=== PATIENT | female | born 1970 | race Caucasian/White ===

== ENCOUNTER 2024-01-16 13:40 | Emergency (ER) | payer OTHER, SELFPAY ==
[2024-01-16 13:45] VITALS: BP 158/79
--- NOTE | 2024-01-16 14:59 | ED.GENMED ---
History of Present Illness
General
Chief Complaint: DVT/Possible Blood Clot
Source: patient
Exam Limitations: none
Time Seen by Provider: 01/16/24 14:55
Nursing documentation reviewed up to this point in time: agreed with
Travel History
Have you had any contact with someone who has COVID-19?: No
Do you have any symptoms of coronavirus? Fever > 100 degrees, chills, cough, shortness of breath, sore throat, loss of taste or smell, muscle aches, or headache?: No
History of Present Illness
History of Present Illness:
This is a 53-year-old female with past medical history of antiphospholipid antibody syndrome, fibromyalgia presenting to the emergency department today with right-sided calf pain. She states that the pain has been going on for a while but it got
worse today randomly. She states that is worse with walking. She denies any lower extremity swelling, redness. She denies any history of vascular disease. She denies any trauma to the leg. Denies any recent falls. She does not take any
anticoagulation for her antiphospholipid syndrome because she is never had a clot before. She states that this pain has been going on for around the past 6 months but today it is a lot worse. She states that she also has diffuse spasms throughout
her body, and is been being worked up by this issue by a coil winder hand, and has an appointment in 6 months with neurologist. She is concerned about the possibility of a clot in her leg due to her history of phospholipid syndrome. She denies other
symptoms, denies difficulty with ambulation, denies shortness of breath, chest pain.
Past History
Past History
ED Past Medical History: Asthma, HTN, Hypercholesterolemia, Hypothyroidism and Other (Herniated disc Chronic Sinusitis, Ovarian cyst, Sigmoid colon colapse, fibromyalgia, anxiety)
ED Past Surgical History: Cholecystectomy, Orthopedic and Other (Fibromyalgia, peripheral neuropathy, gastric bypass)
Social History
Tobacco: Smoker (vaping)
Alcohol: None
Drug: None
Personal:
Living: with family
Family History
Family History: Other (n/c)
Review of Systems
Review of Systems
All Other Systems: ROS reviewed and negative except as documented in HPI and ROS
Phy Exam
Physical Exam
Physical Exam:
Vitals: Patient is hypertensive
General: Patient is well appearing and in no acute distress
Skin: Skin warm and dry, no rashes or lesions
Cards: Heart rate is regular rate and rhythm, no murmur
Pulm: Normal respiratory effort
Peripheral vascular: There is no lower extremity edema bilaterally. 2+ DP/PT pulses bilaterally.
Musculoskeletal: Patient has full range of motion bilateral lower extremities. Patient has no tenderness to palpation of the right calf, no active spasm felt. Negative jennifer's sign bilaterally.
Neuro: AAOx3.
Course
Orders/Labs/Results
Orders:
Orders
01/16/24 13:53
US Periph Venous LOWER Ext RT Urgent
Comment:
Reason For Exam: calf pain
Vital Signs
Initial and Last Documented VS:
Initial Vital Signs
Temp Pulse Resp BP Pulse Ox
97.9 F 87 16 158/79 98
01/16/24 13:45 01/16/24 13:45 01/16/24 13:45 01/16/24 13:45 01/16/24 13:45
Last Documented Vital Signs
Temp Pulse Resp BP Pulse Ox
97.9 F 87 16 158/79 98
01/16/24 13:45 01/16/24 13:45 01/16/24 13:45 01/16/24 13:45 01/16/24 13:45
MDM/Problems Addressed
Differential Diagnosis Includes:
ddx include fasciculations,musculoskeletal sprain/strain, hypokalemia, DVT, MS, fibromyalgia
MDM/Problems Addressed:
calf pain
Chronic conditions affecting care: HTN, Asthma, Neurological disorder, Psychiatric illness and Other (fibromyalgia)
Acute Exacerbation and/or Progression of Chronic Illness: HTN
*Pulse Oximetry
Patient hypoxic: no
*Critical Care Note
Total Time (30-74mins, 75-104mins- exclusive of procedures): Not Applicable
Data Reviewed
Review of Other/Old Records Reveals: Labs (Reviewed most recent labs, electrolytes unremarkable) and Records (Reviewed ER physician documentation from 10/13/2023)
Source: patient and family
Prescriptions/Medications Considered But Not Given:
Considered muscle relaxant however patient states that this has not helped her symptoms in the past
Further Testing Considered But Not Given:
n/a
Patient Management
Escalation/DeEscalation of care consider admission/obs:
53 y/o female with past medical history of antiphospholipid antibody syndrome not on anticoagulation, fibromyalgia, presenting emergency department today with right calf pain. She states that this has been going on for many months but it is
particularly worse today. On exam, she has no tenderness palpation in the right calf, no active spasm, no lower extremity swelling or erythema. She has good pulses. Her ultrasound study was negative for DVT. She also admits to full body muscle
spasming. She is currently being worked up by rheumatology for this issue and will see neurology. Her primary provider is concerned about a neuromuscular disease. At this point, she is stable for discharge, she states that she has a neurology
follow-up in the summer however wishes to see them sooner. I provided her her with a follow-up with neurology from [place].
ED Attending Note
-
Portions of this chart may have been created with voice recognition software.� Occasional wrong word or��sound alike� substitutions may have occurred due to the inherent limitations of voice recognition software.
Discharge Plan
Departure
Patient Disposition: Home (Routine Discharge)
Date of Disposition: 01/16/24
Time of Disposition: 15:37
Patient with high blood pressure during this ER visit?: Yes
Condition: Good
Discharge Problem:
Calf pain
Instructions: Muscle Spasm ED, BLOOD PRESSURE
Prescriptions:
No Action
omeprazole [Prilosec] 40 MG capsule,delayed release(DR/EC)
20 mg PO DAILY
levothyroxine 150 MCG tablet
200 mcg PO DAILY
albuterol sulfate 1 PUFF HFA aerosol inhaler
2 puff inhalation Q4HPRN PRN (Reason: sob)
multivitamin [Multi-Day] 1 EACH tablet
1 ea PO DAILY
cholecalciferol (vitamin D3) 5,000 UNIT tablet
5,000 unit PO DAILY
cyanocobalamin (vitamin B-12) 1,000 MCG tablet
1,000 mcg PO WEEKLY
losartan-hydrochlorothiazide 1 EACH tablet
1 ea PO DAILY
Calcium Citrate
600 mg PO DAILY
cannabidiol [Epidiolex] 1 UNIT solution
1 unit PO DAILY PRN (Reason: chronic pain)
prednisone 10 mg Tablet
See Rx Instructions .ROUTE .COMPLEX Qty: 30 0RF
Rx Instructions:
Take By Mouth:
40 mg daily x3 days, 30 mg daily x3 days,
20 mg daily x3 days, 10 mg daily x3 days.
Referrals:
Jeromy Mcbride MD [Active] - Call in 1-3 days for appt
Activity Restrictions/Additional Instructions:
Your ultrasound did not show any evidence of blood clot.
We have given you referral for neurology, Dr. Mcbride, please call in 1-3 days for an appointment.
Please return emergency department with any concerns. Please follow-up with your primary care provider.
Interventions
Interventions:
*General Assessment Last Done: 01/16/24 13:45
*ED COVID-19 Vaccine History Last Done: 01/16/24 13:45
*Nursing Disposition Last Done: 01/16/24 15:57
ED- Cardiac Assessment Last Done: 01/16/24 15:46
ED- Pulmonary Assessment Last Done: 01/16/24 15:46
ED-Peripheral Vascular Assessment Last Done: 01/16/24 15:46
ED-Skin Assessment Last Done: 01/16/24 15:46
Discharge Date and Time
Discharge Date/Time: 01/16/24 15:58
== END 2024-01-16 15:58 | disposition home or self-care (01) ==
LOC: EMR 13:40
PROVIDERS: EMERGENCY PHYSICIAN Emergency Medicine; FAMILY PHYSICIAN Family Medicine
DX: M79.661 Pain in right lower leg (principal); D68.61 Antiphospholipid syndrome; M79.7 Fibromyalgia; J45.909 Unspecified asthma, uncomplicated; I10 Essential (primary) hypertension; E78.00 Pure hypercholesterolemia, unspecified; E03.9 Hypothyroidism, unspecified; F17.290 Nicotine dependence, other tobacco product, uncomplicated; Z90.49 Acquired absence of other specified parts of digestive tract; Z98.84 Bariatric surgery status
CPT/HCPCS: 99284; 93971

== ENCOUNTER → 2024-01-30 08:03 | Outpatient (REF) | payer OTHER, SELFPAY | LOC: DHCBC/DCA 08:03 | PROVIDERS: ATTENDING PHYSICIAN Internal Medicine Cardiovascular Disease; FAMILY PHYSICIAN Family Medicine | DX: R07.2 Precordial pain (principal) | CPT/HCPCS: 78452; 93017; A9500; J2785 ==

== ENCOUNTER → 2024-02-11 16:03 | Outpatient (REF) | payer OTHER, SELFPAY | LOC: PAVMRI 16:03 | PROVIDERS: ATTENDING PHYSICIAN Neurological Surgery; FAMILY PHYSICIAN Family Medicine | DX: M47.816 Spondylosis without myelopathy or radiculopathy, lumbar region (principal) | CPT/HCPCS: 72146; 72148 ==

== ENCOUNTER → 2024-03-17 08:14 | Outpatient (REF) | payer OTHER, SELFPAY | LOC: HWRAD 08:14 | PROVIDERS: ATTENDING PHYSICIAN Internal Medicine Critical Care Medicine; FAMILY PHYSICIAN Family Medicine | DX: Z87.891 Personal history of nicotine dependence (principal) | CPT/HCPCS: 71271 ==

== ENCOUNTER → 2024-03-17 | Outpatient (REF) | payer OTHER, SELFPAY | LOC: DHSLP | PROVIDERS: ATTENDING PHYSICIAN Internal Medicine Critical Care Medicine; FAMILY PHYSICIAN Family Medicine | DX: G47.30 Sleep apnea, unspecified (principal); R06.83 Snoring | CPT/HCPCS: 95810 ==

== ENCOUNTER → 2024-04-15 15:15 | Outpatient (REF) | payer OTHER, SELFPAY | LOC: PAVMRI 15:15 | PROVIDERS: ATTENDING PHYSICIAN Orthopaedic Surgery; FAMILY PHYSICIAN Family Medicine | DX: M25.552 Pain in left hip (principal) | CPT/HCPCS: 73721 ==

== ENCOUNTER → 2024-04-22 09:15 | Outpatient (REF) | payer OTHER, SELFPAY | LOC: DHSLP 09:15 | PROVIDERS: ATTENDING PHYSICIAN Internal Medicine Critical Care Medicine; FAMILY PHYSICIAN Family Medicine | DX: G47.33 Obstructive sleep apnea (adult) (pediatric) (principal) | CPT/HCPCS: 95810 ==

== ENCOUNTER → 2024-04-23 | Outpatient (REF) | payer OTHER, SELFPAY | LOC: DHSLP | PROVIDERS: ATTENDING PHYSICIAN Internal Medicine Critical Care Medicine; FAMILY PHYSICIAN Family Medicine | DX: G47.11 Idiopathic hypersomnia with long sleep time (principal); G47.30 Sleep apnea, unspecified | CPT/HCPCS: 95805 ==

== ENCOUNTER → 2024-05-03 07:31 | Outpatient (REF) | payer OTHER, SELFPAY | LOC: EMG 07:31 | PROVIDERS: ATTENDING PHYSICIAN Orthopaedic Surgery; FAMILY PHYSICIAN Obstetrics & Gynecology | DX: R20.0 Anesthesia of skin (principal) | CPT/HCPCS: 95886; 95909 ==

== ENCOUNTER → 2024-05-25 17:08 | Outpatient (REF) | payer OTHER, SELFPAY | LOC: PAVMRI 17:08 | PROVIDERS: ATTENDING PHYSICIAN Orthopaedic Surgery; FAMILY PHYSICIAN Family Medicine | DX: M54.12 Radiculopathy, cervical region (principal); M79.642 Pain in left hand | CPT/HCPCS: 72141; 73218 ==

== ENCOUNTER → 2024-05-29 07:15 | Outpatient (REF) | payer OTHER, SELFPAY | LOC: MRI 3T 07:15 | PROVIDERS: ATTENDING PHYSICIAN Orthopaedic Surgery; FAMILY PHYSICIAN Family Medicine | DX: M25.561 Pain in right knee (principal) | CPT/HCPCS: 73721 ==

== ENCOUNTER → 2024-06-07 09:06 | Outpatient (REF) | payer OTHER, SELFPAY | LOC: HWWDC 09:06 | PROVIDERS: ATTENDING PHYSICIAN Family Medicine | DX: Z12.31 Encounter for screening mammogram for malignant neoplasm of breast (principal) | CPT/HCPCS: 77063; 77067 ==

== ENCOUNTER → 2024-07-19 14:56 | Outpatient (REF) | payer OTHER, SELFPAY | LOC: HWRAD 14:56 | PROVIDERS: ATTENDING PHYSICIAN Neurological Surgery; FAMILY PHYSICIAN Family Medicine | DX: M47.812 Spondylosis without myelopathy or radiculopathy, cervical region (principal); M48.02 Spinal stenosis, cervical region; M54.2 Cervicalgia; M54.12 Radiculopathy, cervical region; M47.816 Spondylosis without myelopathy or radiculopathy, lumbar region; M43.16 Spondylolisthesis, lumbar region; M48.062 Spinal stenosis, lumbar region with neurogenic claudication; M54.42 Lumbago with sciatica, left side; M54.41 Lumbago with sciatica, right side; M54.16 Radiculopathy, lumbar region; G89.4 Chronic pain syndrome; M25.562 Pain in left knee; G89.29 Other chronic pain | CPT/HCPCS: 72050; 72110 ==

== ENCOUNTER → 2024-08-09 10:45 | Outpatient (REF) | payer OTHER, SELFPAY | LOC: HWRAD 10:45 | PROVIDERS: ATTENDING PHYSICIAN Internal Medicine Rheumatology; FAMILY PHYSICIAN Family Medicine | DX: M81.0 Age-related osteoporosis without current pathological fracture (principal) | CPT/HCPCS: 77080 ==

== ENCOUNTER → 2024-08-19 09:59 | Outpatient (REF) | payer OTHER, SELFPAY | LOC: RAD 09:59 | PROVIDERS: ATTENDING PHYSICIAN Internal Medicine; FAMILY PHYSICIAN Family Medicine; REFERRING PHYSICIAN Surgery Vascular Surgery | DX: M79.604 Pain in right leg (principal); M79.605 Pain in left leg; F17.200 Nicotine dependence, unspecified, uncomplicated | CPT/HCPCS: 93922; 93925; 93978 ==

== ENCOUNTER → 2024-11-17 15:51 | Outpatient (REF) | payer OTHER, SELFPAY | LOC: DHSLP 15:51 | PROVIDERS: ATTENDING PHYSICIAN Internal Medicine Critical Care Medicine; FAMILY PHYSICIAN Family Medicine | DX: G47.33 Obstructive sleep apnea (adult) (pediatric) (principal); G47.52 REM sleep behavior disorder | CPT/HCPCS: 95810 ==

== ENCOUNTER 2024-11-21 12:39 | Emergency (ER) | payer OTHER, SELFPAY ==
[2024-11-21 12:41] VITALS: BP 179/90
[2024-11-21 13:28] VITALS: BP 145/88
[2024-11-21 13:35] VITALS: BMI 42.8
[2024-11-21 14:00] VITALS: BP 131/65
[2024-11-21] MEDS: NSS 1000 IV (14:50)
--- NOTE | 2024-11-21 15:03 | ED.GENMED ---
History of Present Illness
General
Chief Complaint: Heart Rate Problem
Source: patient
Exam Limitations: none
Time Seen by Provider: 11/21/24 13:12
Nursing documentation reviewed up to this point in time: agreed with
History of Present Illness
History of Present Illness:
54-year-old female with past medical history of asthma, anemia, IBS presenting the emergency department today for concerns of palpitations and starting earlier this morning roughly 10 hours prior to arrival to the emergency department also felt some
shortness of breath. Has been on prednisone for bronchitis over the past few weeks. Denies any specific chest pain nausea vomiting any recent fevers.
Past History
Past History
ED Past Medical History: Asthma, HTN, Hypercholesterolemia, Hypothyroidism and Other (Herniated disc Chronic Sinusitis, Ovarian cyst, Sigmoid colon colapse, fibromyalgia, anxiety)
ED Past Surgical History: Cholecystectomy, Orthopedic and Other (Fibromyalgia, peripheral neuropathy, gastric bypass)
Social History
Tobacco: Smoker (vaping)
Alcohol: None
Drug: None
Personal:
Living: with family
Family History
Family History: Other (n/c)
Review of Systems
Review of Systems
Allergies reviewed?: Yes
All Other Systems: ROS reviewed and negative except as documented in HPI and ROS
Phy Exam
Physical Exam
Physical Exam:
GENERAL: Alert , in no apparent distress
EYE: pupils equal and reactive
NECK: Supple, no significant adenopathy.
ENT: o/p clr, mmm.
CARDIAC: Regular rate and rhythm .
LUNGS: Clear breath sounds bilaterally, no acute respiratory distress, no wheezes/rales/rhonchi
ABDOMEN: Soft, without focal tenderness, no r/g, no cvat
NEUROLOGICAL: Alert and oriented, no focal neuro deficits
SKIN: Warm and dry, skin intact.
MUSCULOSKELETAL: No edema, well perfused.
PSYCH: Normal and appropriate interaction.
Course
Orders/Labs/Results
Orders:
Orders
11/21/24 12:40
ECG [Electrocardiogram (*1)] Urgent
Reason for Study: Palpitations
EKG- Treatment ONCE
11/21/24 14:24
0.9% Sodium Chloride 1000 ml [Nss] 1,000 ml IV BOLUS
11/21/24 14:48
Complete Blood Count/With Diff Urgent
Comprehensive Metabolic Panel Urgent
TSH Reflex To Free T4 Urgent
Urinalysis Reflex To Culture Urgent
Date Specimen was Collected: 11/21/24
Time Specimen was Collected: 14:41
11/21/24 17:54
Flecainide [Tambocor] 50 mg PO NOW STA
Abnormal Lab Results
11/21/24
14:48
WBC 10.9 H 10^3/uL
(4.8-10.8)
Abs Immat Gran (auto) 0.1 H 10^3/uL
(0-0.05)
Absolute Neuts (auto) 8.9 H 10^3/uL
(1.4-6.5)
Immature Gran % 1.0 H %
(0-0.5)
Neutrophils % 81.5 H %
(42.2-75.2)
Lymphocytes % 11.8 L %
(20.5-51.1)
Sodium 134 L mmol/L
(135-145)
Chloride 97 L mmol/L
(98-107)
Carbon Dioxide 33 H mmol/L
(22-30)
BUN 24 H mg/dl
(7-17)
11/21/24 14:48
11/21/24 14:48
Vital Signs
Initial and Last Documented VS:
Initial Vital Signs
Temp Pulse Resp BP Pulse Ox
98.6 F 67 18 179/90 99
11/21/24 12:41 11/21/24 12:41 11/21/24 12:41 11/21/24 12:41 11/21/24 12:41
Last Documented Vital Signs
Temp Pulse Resp BP Pulse Ox
98.6 F 65 15 134/74 97
11/21/24 12:41 11/21/24 16:15 11/21/24 16:15 11/21/24 16:00 11/21/24 16:15
MDM/Problems Addressed
MDM/Problems Addressed:
54-year-old female presenting to the emergency department today for concerns of palpitations starting prior to arrival. Some mild shortness of breath associated. On arrival heart rate is in normal rate EKG with no arrhythmia initial blood pressure
elevated but without specific treatment. Normal heart sounds and lung sounds. Here she did have heart rate fluctuation between 50s to 120s. The 120 rhythm is appear to be supraventricular. The case was discussed with cardiology they reviewed the
case and spoke with the patient directly about this. They recommend starting flecainide but otherwise stable for outpatient follow-up. Remainder of the workup without emergent findings stable for outpatient management return precautions given.
*Critical Care Note
Total Time (30-74mins, 75-104mins- exclusive of procedures): Not Applicable
ED Attending Note
-
Portions of this chart may have been created with voice recognition software.� Occasional wrong word or��sound alike� substitutions may have occurred due to the inherent limitations of voice recognition software.
Discharge Plan
Departure
Patient Disposition: Home (Routine Discharge)
Date of Disposition: 11/21/24
Time of Disposition: 18:06
Patient with high blood pressure during this ER visit?: No
Condition: Good
Covid-19: Not Applicable
Discharge Problem:
Heart palpitations
Instructions: Palpitations (DC)
Prescriptions:
No Action
omeprazole [Prilosec] 40 MG capsule,delayed release(DR/EC)
20 mg PO DAILY
levothyroxine 150 MCG tablet
200 mcg PO DAILY
albuterol sulfate 1 PUFF HFA aerosol inhaler
2 puff inhalation Q4HPRN PRN (Reason: sob)
multivitamin [Multi-Day] 1 EACH tablet
1 ea PO DAILY
cholecalciferol (vitamin D3) 5,000 UNIT tablet
5,000 unit PO DAILY
cyanocobalamin (vitamin B-12) 1,000 MCG tablet
1,000 mcg PO WEEKLY
losartan-hydrochlorothiazide 1 EACH tablet
1 ea PO DAILY
Calcium Citrate
600 mg PO DAILY
cannabidiol [Epidiolex] 1 UNIT solution
1 unit PO DAILY PRN (Reason: chronic pain)
prednisone 10 mg Tablet
See Rx Instructions .ROUTE .COMPLEX Qty: 30 0RF
Rx Instructions:
Take By Mouth:
40 mg daily x3 days, 30 mg daily x3 days,
20 mg daily x3 days, 10 mg daily x3 days.
Referrals:
Deejay Lopez MD [Family Provider] -
Activity Restrictions/Additional Instructions:
You came to the emergency department today with concerns of palpitations. Here your heart rate was fluctuating and you were having some evidence of supraventricular beats here and there. This was discussed with cardiology that recommends
flecainide. Please take as prescribed dosing and follow-up closely with cardiology. Return to the emergency department any worsening, new or concerning symptoms.
Interventions
Interventions:
*Risk Screen - Suicide Last Done: 11/21/24 12:41
*General Assessment Last Done: 11/21/24 12:41
*Neglect/Abuse Screening Last Done: 11/21/24 12:41
*ED COVID-19 Vaccine History Last Done: 11/21/24 12:41
ED- Cardiac Assessment Last Done: 11/21/24 17:12
ED- Pulmonary Assessment Last Done: 11/21/24 16:22
Discharge Date and Time
Print Language: WALLISIAN
[2024-11-21 15:13] LABS: % Basophils 0.3 % (0-2); % Eosinophils 0.2 % (0-6); % Lymphocytes 11.8 % (20.5-51.1); % Monocytes 5.2 % (1.7-9.3); % Neutrophils 81.5 % (42.2-75.2); Absolute Immature Granulocytes 0.1 10^3/uL (0-0.05); Absolute Lymphocytes 1.3 10^3/uL (1.2-3.4); Absolute Monocytes 0.6 10^3/uL (0.1-0.6); Absolute Neutrophils 8.9 10^3/uL (1.4-6.5); Hematocrit 39.8 % (37.0-47.0); Hemoglobin 13.3 g/dL (12.0-16.0); Mean Corp Hgb Conc. 33.4 g/dL (33.0-37.0); Mean Corpuscular Hgb 29.7 pg (27.0-31.0); Mean Corpuscular Volume 88.8 fL (81.0-99.0); Nucleated Red Blood Cells % 0 %; Platelet Count 363 10^3/uL (130-400); Red Blood Cell Count 4.48 10^6/uL (4.20-5.40); Red Cell Dist. Width 13.1 % (11.5-14.5); White Blood Cell Count 10.9 10^3/uL (4.8-10.8)
[2024-11-21 15:17] LABS: Urine Albumin Negative (Neg - Trace); Urine Bilirubin Negative (Negative); Urine Character Clear (Clear); Urine Color Yellow; Urine Glucose Negative (Negative); Urine Ketone Negative (Negative); Urine Leukocyte Negative (Negative); Urine Nitrite Negative (Negative); Urine Occult Blood Negative (Negative); Urine Specific Gravity 1.015 (<1.030); Urine Urobilinogen Negative (Neg - 1+)
[2024-11-21 15:31] LABS: ALT (SGPT) 20 U/L (0-35); AST (SGOT) 21 U/L (14-36); Albumin 4.3 g/dl (3.5-5.0); Alkaline Phosphatase 83 U/L (38-126); Blood Urea Nitrogen 24 mg/dl (7-17); Calcium 9.4 mg/dl (8.4-10.2); Carbon Dioxide 33 mmol/L (22-30); Chloride 97 mmol/L (98-107); Estimated Creatinine Clearance 84 ml/min; Glucose 98 mg/dl (70-99); Potassium 4.7 mmol/L (3.5-5.1); Sodium 134 mmol/L (135-145); Total Bilirubin 0.3 mg/dl (0.2-1.3); eGFR > 60.00
[2024-11-21 16:00] VITALS: BP 134/74
[2024-11-21 17:00] VITALS: BP 137/71
[2024-11-21] MEDS: TAMBOCOR 50 MG PO (18:02)
== END 2024-11-21 18:22 | disposition home or self-care (01) ==
LOC: EMR 12:39
PROVIDERS: Physician Assistant; EMERGENCY PHYSICIAN Emergency Medicine; FAMILY PHYSICIAN Family Medicine
DX: R00.2 Palpitations (principal); J45.909 Unspecified asthma, uncomplicated; I10 Essential (primary) hypertension; E03.9 Hypothyroidism, unspecified; E78.00 Pure hypercholesterolemia, unspecified; M79.7 Fibromyalgia; F17.290 Nicotine dependence, other tobacco product, uncomplicated; Z90.49 Acquired absence of other specified parts of digestive tract; Z98.84 Bariatric surgery status
CPT/HCPCS: 99284; 96360; 80053; 81003; 84443; 85025; 93005

== ENCOUNTER → 2024-11-29 14:35 | Outpatient (REF) | payer OTHER, SELFPAY | LOC: PAVMRI 14:35 | PROVIDERS: ATTENDING PHYSICIAN Neurological Surgery; FAMILY PHYSICIAN Family Medicine | DX: M47.816 Spondylosis without myelopathy or radiculopathy, lumbar region (principal); M54.12 Radiculopathy, cervical region; M43.16 Spondylolisthesis, lumbar region; M48.062 Spinal stenosis, lumbar region with neurogenic claudication; M54.16 Radiculopathy, lumbar region | CPT/HCPCS: 72148 ==

== ENCOUNTER → 2025-01-04 12:05 | Outpatient (REF) | payer OTHER, SELFPAY | LOC: RCS 12:05 | PROVIDERS: ATTENDING PHYSICIAN Internal Medicine; FAMILY PHYSICIAN Family Medicine | DX: R00.2 Palpitations (principal) | CPT/HCPCS: 93225; 93226 ==

== ENCOUNTER → 2025-02-02 08:48 | Outpatient (REF) | payer OTHER, SELFPAY | LOC: RCS 08:48 | PROVIDERS: ATTENDING PHYSICIAN Internal Medicine; FAMILY PHYSICIAN Family Medicine; REFERRING PHYSICIAN Neurological Surgery | DX: Z01.818 Encounter for other preprocedural examination (principal); M48.062 Spinal stenosis, lumbar region with neurogenic claudication | CPT/HCPCS: 93005 ==

== ENCOUNTER → 2025-02-15 06:41 | Outpatient (REF) | payer OTHER, SELFPAY | LOC: PAVMRI 06:41 | PROVIDERS: ATTENDING PHYSICIAN Psychiatry & Neurology Neurology; FAMILY PHYSICIAN Family Medicine | DX: G43.909 Migraine, unspecified, not intractable, without status migrainosus (principal) | CPT/HCPCS: 70551 ==

== ENCOUNTER → 2025-03-14 09:14 | Outpatient (REF) | payer OTHER, SELFPAY | LOC: HWRAD 09:14 | PROVIDERS: FAMILY PHYSICIAN Family Medicine | DX: Z98.1 Arthrodesis status (principal) | CPT/HCPCS: 72110 ==

== ENCOUNTER 2025-03-28 00:18 | Emergency (ER) | payer OTHER, SELFPAY ==
[2025-03-28 00:22] VITALS: BP 134/68
[2025-03-28 01:06] LABS: COVID-19 Antigen Negative (Negative)
[2025-03-28 04:40] VITALS: BP 126/70
[2025-03-28 06:16] VITALS: BP 118/59
--- NOTE | 2025-03-28 06:26 | ED.GENMED ---
History of Present Illness
General
Chief Complaint: Cold/Flu/URI Symptoms
Source: patient
Exam Limitations: none
Time Seen by Provider: 03/28/25 06:08
History of Present Illness
History of Present Illness:
54-year-old female with history of clotting disorder and recent lumbar spine surgery 4 to 5 weeks ago presents complaining of chest burning cough shortness of breath occasional fever. She also notes nasal congestion. She has a history of COPD
bronchitis and pneumonia. Prophylactically after her spinal surgery, she was on Eliquis however she stopped this about 4 days ago. No leg swelling or calf pain. No new onset leg numbness weakness or bowel or bladder dysfunction. She notes
intermittent fevers. No other complaints at this time
Past History
Past History
ED Past Medical History: Asthma, HTN, Hypercholesterolemia, Hypothyroidism and Other (Herniated disc Chronic Sinusitis, Ovarian cyst, Sigmoid colon colapse, fibromyalgia, anxiety)
ED Past Surgical History: Cholecystectomy, Orthopedic and Other (Fibromyalgia, peripheral neuropathy, gastric bypass)
Social History
Tobacco: Smoker (vaping)
Alcohol: None
Drug: None
Personal:
Living: with family
Family History
Family History: Other (n/c)
Phy Exam
Physical Exam
Physical Exam:
General: Well-appearing female no acute respiratory distress
HEENT: Normocephalic atraumatic
Heart: Regular rate and rhythm
Lungs: Slightly coarse bilaterally no obvious rales abdomen is soft nontender nondistended
Extremities: No sign of
Sepsis
Sepsis Screening
Sepsis Assessment: Sepsis Ruled Out
Sepsis Screen
Sepsis Screen: Sepsis Ruled Out
Date: 03/28/25
Time: 08:40
Course
Orders/Labs/Results
Orders:
Orders
03/28/25 00:40
COVID-19 Antigen Urgent
Source: Nasal Swab
INF RAPID [Influenza A+B Rapid Molecular] Urgent
CATHY Source: Nasal Swab
Specimen Description:
03/28/25 06:22
Complete Blood Count/With Diff Urgent
Comprehensive Metabolic Panel Urgent
03/28/25 06:24
CT Chest PE Study Urgent
Comment:
Reason For Exam: sob, chest pain, recent surgery
Troponin I Urgent
Ipratropium/Albuterol Sulfate [Duoneb] 3 ml INH R NOW STA
03/28/25 06:43
0.9% Sodium Chloride 1000 ml [Nss] 1,000 ml IV BOLUS
03/28/25 07:32
Acetaminophen [Tylenol] 1,000 mg PO NOW STA
03/28/25 07:35
Acetaminophen [Tylenol] 1,000 mg .ROUTE .STK-MED ONE
Abnormal Lab Results
03/28/25
06:22
RBC 3.78 L 10^6/uL
(4.20-5.40)
Hgb 11.1 L g/dL
(12.0-16.0)
Hct 34.2 L %
(37.0-47.0)
MCHC 32.5 L g/dL
(33.0-37.0)
Absolute Lymphs (auto) 1.0 L 10^3/uL
(1.2-3.4)
Absolute Monos (auto) 0.7 H 10^3/uL
(0.1-0.6)
Neutrophils % 77.0 H %
(42.2-75.2)
Lymphocytes % 12.2 L %
(20.5-51.1)
Carbon Dioxide 31 H mmol/L
(22-30)
BUN 18 H mg/dl
(7-17)
03/28/25 06:22
03/28/25 06:22
Vital Signs
Initial and Last Documented VS:
Initial Vital Signs
Temp Pulse Resp BP Pulse Ox
98.6 F 82 24 134/68 100
03/28/25 00:22 03/28/25 00:22 03/28/25 00:22 03/28/25 00:22 03/28/25 00:22
Last Documented Vital Signs
Temp Pulse Resp BP Pulse Ox
98.9 F 72 18 118/59 97
03/28/25 07:29 03/28/25 06:45 03/28/25 06:49 03/28/25 06:16 03/28/25 06:45
MDM/Problems Addressed
Differential Diagnosis Includes:
Fever cough shortness of breath chest discomfort. Recent surgery. Consider COPD flare versus pneumonia versus PE given recent surgery and clotting disorder.
Workup initiated with labs. Given risk factors, PE study ordered.
*Critical Care Note
Total Time (30-74mins, 75-104mins- exclusive of procedures): Not Applicable
Update Note
Update Note:
CT negative for acute finding. Do suspect underlying bronchitis. Nebulizer did help her symptoms. She recently started Augmentin. She can continue this. Will prescribe a burst of steroid as well. No indication for admission. Stable for
discharge
ED Attending Note
-
Portions of this chart may have been created with voice recognition software.� Occasional wrong word or��sound alike� substitutions may have occurred due to the inherent limitations of voice recognition software.
Discharge Plan
Departure
Patient Disposition: Home (Routine Discharge)
Date of Disposition: 03/28/25
Time of Disposition: 08:37
Patient with high blood pressure during this ER visit?: No
Discharge Problem:
Acute bronchitis
Instructions: Acute Bronchitis, Adult (DC)
Prescriptions:
New
prednisone 20 mg tablet
40 mg PO DAILY 5 Days Qty: 10 0RF
No Action
omeprazole [Prilosec] 40 MG capsule,delayed release(DR/EC)
20 mg PO DAILY
levothyroxine 150 MCG tablet
200 mcg PO DAILY
albuterol sulfate 1 PUFF HFA aerosol inhaler
2 puff inhalation Q4HPRN PRN (Reason: sob)
multivitamin [Multi-Day] 1 EACH tablet
1 ea PO DAILY
cholecalciferol (vitamin D3) 5,000 UNIT tablet
5,000 unit PO DAILY
cyanocobalamin (vitamin B-12) 1,000 MCG tablet
1,000 mcg PO WEEKLY
losartan-hydrochlorothiazide 1 EACH tablet
1 ea PO DAILY
Calcium Citrate
600 mg PO DAILY
cannabidiol [Epidiolex] 1 UNIT solution
1 unit PO DAILY PRN (Reason: chronic pain)
prednisone 10 mg Tablet
See Rx Instructions .ROUTE .COMPLEX Qty: 30 0RF
Rx Instructions:
Take By Mouth:
40 mg daily x3 days, 30 mg daily x3 days,
20 mg daily x3 days, 10 mg daily x3 days.
Referrals:
Deejay Lopez MD [Family Provider] -
Activity Restrictions/Additional Instructions:
Continue your antibiotic. Continue your inhaler. Use prednisone as directed. Return if worse otherwise follow-up with your doctor.
Interventions
Interventions:
*Risk Screen - Suicide Last Done: 03/28/25 00:22
*General Assessment Last Done: 03/28/25 07:28
*Neglect/Abuse Screening Last Done: 03/28/25 00:22
*ED- Fall Risk Assessment Last Done: 03/28/25 07:28
*ED COVID-19 Vaccine History Last Done: 03/28/25 07:28
ED- Pulmonary Assessment Last Done: 03/28/25 06:30
Discharge Date and Time
Print Language: SAMI
[2025-03-28] MEDS: DUONEB 3 ML INH (06:27)
[2025-03-28 06:32] LABS: % Basophils 0.2 % (0-2); % Eosinophils 1.9 % (0-6); % Immature Granulocytes 0.4 % (0-0.5); % Lymphocytes 12.2 % (20.5-51.1); % Monocytes 8.3 % (1.7-9.3); Absolute Eosinophils 0.2 10^3/uL (0-0.7); Absolute Monocytes 0.7 10^3/uL (0.1-0.6); Absolute Neutrophils 6.2 10^3/uL (1.4-6.5); Hematocrit 34.2 % (37.0-47.0); Hemoglobin 11.1 g/dL (12.0-16.0); Mean Corp Hgb Conc. 32.5 g/dL (33.0-37.0); Mean Corpuscular Hgb 29.4 pg (27.0-31.0); Mean Corpuscular Volume 90.5 fL (81.0-99.0); Mean Platelet Volume 9.9 fL (7.4-10.4); Nucleated Red Blood Cells % 0 %; Platelet Count 268 10^3/uL (130-400); Red Blood Cell Count 3.78 10^6/uL (4.20-5.40); Red Cell Dist. Width 12.5 % (11.5-14.5)
[2025-03-28 06:44] LABS: ALT (SGPT) 12 U/L (0-35); AST (SGOT) 17 U/L (14-36); Albumin 4.2 g/dl (3.5-5.0); Alkaline Phosphatase 76 U/L (38-126); Blood Urea Nitrogen 18 mg/dl (7-17); Calcium 9.8 mg/dl (8.4-10.2); Carbon Dioxide 31 mmol/L (22-30); Chloride 100 mmol/L (98-107); Glucose 95 mg/dl (70-99); Potassium 4.6 mmol/L (3.5-5.1); Sodium 140 mmol/L (135-145); Total Bilirubin 0.5 mg/dl (0.2-1.3); Total Protein 6.9 g/dl (6.3-8.2); eGFR > 60.00
[2025-03-28] MEDS: NSS 1000 IV (06:44)
[2025-03-28 06:56] LABS: Troponin I < 0.012 ng/ml
[2025-03-28 07:00] VITALS: BP 138/64
[2025-03-28 07:28] VITALS: BMI 42.2
[2025-03-28] MEDS: TYLENOL 1000 MG PO (07:36)
[2025-03-28 08:51] VITALS: BP 115/59
== END 2025-03-28 09:04 | disposition home or self-care (01) ==
LOC: EMR 00:18
PROVIDERS: Physician Assistant; Student in an Organized Health Care Education/Training Program; EMERGENCY PHYSICIAN Emergency Medicine; FAMILY PHYSICIAN Family Medicine
DX: J20.9 Acute bronchitis, unspecified (principal); J44.0 Chronic obstructive pulmonary disease with (acute) lower respiratory infection; E03.9 Hypothyroidism, unspecified; E78.00 Pure hypercholesterolemia, unspecified; I10 Essential (primary) hypertension; F17.290 Nicotine dependence, other tobacco product, uncomplicated; Z98.84 Bariatric surgery status; Z90.49 Acquired absence of other specified parts of digestive tract; Z11.52 Encounter for screening for COVID-19
CPT/HCPCS: 94640; 96360; 99284; 71275; 80053; 84484; 85025; 87502; 87811; Q9967

== ENCOUNTER 2025-05-08 14:26 | Emergency (ER) | payer OTHER, SELFPAY ==
[2025-05-08 14:41] VITALS: BP 134/73
--- NOTE | 2025-05-08 16:49 | ED.GENMED ---
History of Present Illness
General
Chief Complaint: Head Injury
Time Seen by Provider: 05/08/25 16:31
History of Present Illness
History of Present Illness:
55-year-old female presents to the emergency department for evaluation of a nasal injury after a shovel fell and struck her in the face. No LOC. No open wounds. No bleeding from the nose was noted. Not on blood thinners.
Past History
Past History
ED Past Medical History: Asthma, HTN, Hypercholesterolemia, Hypothyroidism and Other (Herniated disc Chronic Sinusitis, Ovarian cyst, Sigmoid colon colapse, fibromyalgia, anxiety)
ED Past Surgical History: Cholecystectomy, Orthopedic and Other (Fibromyalgia, peripheral neuropathy, gastric bypass)
Social History
Tobacco: Smoker (vaping)
Alcohol: None
Drug: None
Personal:
Living: with family
Family History
Family History: Other (n/c)
Review of Systems
Review of Systems
Allergies reviewed?: Yes
All Other Systems: ROS reviewed and negative except as documented in HPI and ROS
Phy Exam
Physical Exam
Physical Exam:
GEN: Well appearing, NAD, WDWN
HEENT: No evidence for cranial trauma. Faint swelling and ecchymosis to the nasal bridge with no deformity. No nasal septal hematoma ; oral mucosa moist, no scleral icterus
Cardiac: Regular rate
Lung: No respiratory distress, no tachypnea
MSK: No gross deformity or injuries
Skin: Good color, no pallor or jaundice, no rashes
Neuro: AO x3, moves all extremities freely
Psych: Calm, cooperative
Course
Vital Signs
Initial and Last Documented VS:
Initial Vital Signs
Temp Pulse Resp BP Pulse Ox
98.5 F 78 14 134/73 98
05/08/25 14:41 05/08/25 14:41 05/08/25 14:41 05/08/25 14:41 05/08/25 14:41
Last Documented Vital Signs
Temp Pulse Resp BP Pulse Ox
98.5 F 78 14 134/73 98
05/08/25 14:41 05/08/25 14:41 05/08/25 14:41 05/08/25 14:41 05/08/25 14:41
MDM/Problems Addressed
MDM/Problems Addressed:
Exam is benign, low suspicion for nasal bone fracture, no indication for imaging
*Critical Care Note
Total Time (30-74mins, 75-104mins- exclusive of procedures): Not Applicable
ED Attending Note
-
Portions of this chart may have been created with voice recognition software.� Occasional wrong word or��sound alike� substitutions may have occurred due to the inherent limitations of voice recognition software.
Discharge Plan
Departure
Patient Disposition: Home (Routine Discharge)
Date of Disposition: 05/08/25
Time of Disposition: 16:49
Patient with high blood pressure during this ER visit?: No
Discharge Problem:
Contusion of nose
Instructions: Contusion (DC)
Prescriptions:
No Action
omeprazole [Prilosec] 40 MG capsule,delayed release(DR/EC)
20 mg PO DAILY
levothyroxine 150 MCG tablet
200 mcg PO DAILY
albuterol sulfate 1 PUFF HFA aerosol inhaler
2 puff inhalation Q4HPRN PRN (Reason: sob)
multivitamin [Multi-Day] 1 EACH tablet
1 ea PO DAILY
cholecalciferol (vitamin D3) 5,000 UNIT tablet
5,000 unit PO DAILY
cyanocobalamin (vitamin B-12) 1,000 MCG tablet
1,000 mcg PO WEEKLY
losartan-hydrochlorothiazide 1 EACH tablet
1 ea PO DAILY
Calcium Citrate
600 mg PO DAILY
cannabidiol [Epidiolex] 1 UNIT solution
1 unit PO DAILY PRN (Reason: chronic pain)
prednisone 10 mg Tablet
See Rx Instructions .ROUTE .COMPLEX Qty: 30 0RF
Rx Instructions:
Take By Mouth:
40 mg daily x3 days, 30 mg daily x3 days,
20 mg daily x3 days, 10 mg daily x3 days.
prednisone 20 mg tablet
40 mg PO DAILY 5 Days Qty: 10 0RF
Referrals:
Deejay Lopez MD [Family Provider, Family Practice]
Activity Restrictions/Additional Instructions:
Ice nose often
Use Tylenol as needed for pain
Interventions
Interventions:
*Risk Screen - Suicide Last Done: 05/08/25 14:41
*General Assessment Last Done: 05/08/25 14:41
*Neglect/Abuse Screening Last Done: 05/08/25 14:41
Discharge Date and Time
Print Language: SPANISH
== END 2025-05-08 17:45 | disposition home or self-care (01) ==
LOC: EMR 14:26
PROVIDERS: EMERGENCY PHYSICIAN Emergency Medicine; FAMILY PHYSICIAN Family Medicine
DX: S00.33XA Contusion of nose, initial encounter (principal); W22.8XXA Striking against or struck by other objects, initial encounter
CPT/HCPCS: 99283

== ENCOUNTER → 2025-05-17 09:23 | Outpatient (REF) | payer OTHER, SELFPAY | LOC: HWRAD 09:23 | PROVIDERS: ATTENDING PHYSICIAN Family Medicine | DX: R51.9 Headache, unspecified (principal) | CPT/HCPCS: 70450 ==

== ENCOUNTER → 2025-05-18 08:26 | Outpatient (REF) | payer OTHER, SELFPAY | LOC: HWRAD 08:26 | PROVIDERS: ATTENDING PHYSICIAN Internal Medicine; FAMILY PHYSICIAN Family Medicine | DX: R09.89 Other specified symptoms and signs involving the circulatory and respiratory systems (principal) | CPT/HCPCS: 93880 ==

== ENCOUNTER 2025-05-22 21:57 | Inpatient (IN) | payer OTHER, SELFPAY ==
[2025-05-22] VITALS (30 sets, daily range): BP systolic 87–143; BP diastolic 37–100; BMI 42.1
[2025-05-22 16:09] LABS: Glucose - Point of Care 160 mg/dl (70-99)
[2025-05-22 16:41] LABS: % Basophils 0.4 % (0-2); % Eosinophils 0.7 % (0-6); % Immature Granulocytes 0.3 % (0-0.5); % Lymphocytes 19.3 % (20.5-51.1); % Neutrophils 75.3 % (42.2-75.2); Absolute Basophils 0.1 10^3/uL (0-0.2); Absolute Eosinophils 0.1 10^3/uL (0-0.7); Absolute Immature Granulocytes 0.1 10^3/uL (0-0.05); Absolute Lymphocytes 3.4 10^3/uL (1.2-3.4); Absolute Monocytes 0.7 10^3/uL (0.1-0.6); Absolute Neutrophils 13.3 10^3/uL (1.4-6.5); Hemoglobin 12.9 g/dL (12.0-16.0); Mean Corp Hgb Conc. 33.1 g/dL (33.0-37.0); Mean Corpuscular Hgb 28.9 pg (27.0-31.0); Mean Corpuscular Volume 87.4 fL (81.0-99.0); Mean Platelet Volume 10.5 fL (7.4-10.4); Nucleated Red Blood Cells % 0 %; Platelet Count 370 10^3/uL (130-400); Red Blood Cell Count 4.46 10^6/uL (4.20-5.40); Red Cell Dist. Width 13.4 % (11.5-14.5); White Blood Cell Count 17.6 10^3/uL (4.8-10.8)
[2025-05-22 17:05] LABS: ALT (SGPT) 17 U/L (0-35); AST (SGOT) 25 U/L (14-36); Albumin 4.1 g/dl (3.5-5.0); Alkaline Phosphatase 163 U/L (38-126); Blood Urea Nitrogen 30 mg/dl (7-17); Calcium 9.2 mg/dl (8.4-10.2); Carbon Dioxide 20 mmol/L (22-30); Chloride 103 mmol/L (98-107); Glucose 164 mg/dl (70-99); Lipase 358 U/L (23-300); Potassium 4.1 mmol/L (3.5-5.1); Sodium 135 mmol/L (135-145); Total Bilirubin 0.5 mg/dl (0.2-1.3); Total Protein 6.4 g/dl (6.3-8.2); eGFR 37.62
--- NOTE | 2025-05-22 17:24 | ED.GENMED ---
History of Present Illness
General
Chief Complaint: Fainting Sensation
Time Seen by Provider: 05/22/25 17:24
History of Present Illness
History of Present Illness:
TIME OF INITIAL EVALUATION
- 5:30 PM
REVIEW OF OLD RECORDS
- Patient has history of COPD, aortic stenosis, has had SVT, high blood pressure, diabetes, hypothyroidism/thyroiditis, had gastric bypass in 2003
Note:
CHIEF COMPLAINT(S)
Gastrointestinal distress.
HISTORY OF PRESENT ILLNESS
The patient is a 55-year-old female who presents with severe diarrhea and vomiting that started after consuming yogurt earlier today. She reports a significant amount of diarrhea and describes a sensation as if her intestines are 'going to drop
out.' Symptom onset was sudden, and she experiences pain, primarily on the left side. No recent antibiotic usage was reported. Her symptoms include nausea, abdominal pain, and numbness of the tongue. She feels very unwell, describing episodes of
seeing stars and unspecific visual symptoms like flashes. Blood work shows an elevated white blood cell count of 17,000. Recent kidney function tests indicate her creatinine has risen from a baseline of 0.6 to 1.7. Past medical history includes
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 The patient also reported a history of kidney stones.
ADDITIONAL HISTORY OBTAINED FROM SOURCES OTHER THAN THE PATIENT
According to a family member, the patients kidney function was normal previously but is now compromised.
PAST SURGICAL HISTORY
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
SOCIAL HISTORY
No recent use of antibiotics. No other relevant social history mentioned.
REVIEW OF SYSTEMS
- Gastrointestinal: Severe diarrhea, vomiting, abdominal pain, nausea.
- Visual: Seeing stars and flashes.
- Neurologic: Tongue numbness.
PHYSICAL EXAM
- General: Appears uncomfortable, foul odor of stool noted
- HEENT: Slightly dry oral mucosa
- Cardiovascular: No murmurs, normal heart rate, regular rhythm, No chest wall tenderness
- Pulmonary: No respiratory distress, breath sounds are clear and equal
- Abdomen: Soft with no peritoneal signs, very mild left-sided abdominal tenderness
- Neurologic: Excellent strength all extremities, no coordination deficits
- Psychiatric: Appropriate mental status, normal insight and judgement
- Extremities: Nontender, no edema, moves all extremities equally
- Skin: No rash, no lesions
PLAN
Administer fluids to address dehydration and impaired kidney function. Monitor kidney function closely. Consider providing nausea medication. Discussion of potential use of antidiarrheal medication but deferred due to concern about potential
complications. Offer analgesics cautiously due to renal considerations, with preference for non-narcotic options unless otherwise necessary.
DIFFERENTIAL DIAGNOSIS
The Differential Diagnosis includes, in no particular order and is not limited to:
1. Viral gastroenteritis
2. Bacterial gastroenteritis
3. Clostridioides difficile infection
4. Food poisoning
5. Acute kidney injury
6. Dehydration
7. Metabolic acidosis
8. Diverticulitis
9. Ischemic colitis
10. Gastrointestinal obstruction
11. Ozempic side effect
RADIOLOGY
- CT imaging obtained due to ongoing pain with leukocytosis�pancolitis noted
EKG
- Sinus 69, normal axis, nonspecific ST abnormality, QTc 432 ms
LABS
- White count 17.6, hemoglobin normal, bicarb 20, creatinine 1.6 (over doubled in baseline), lipase 358
UPDATE
-SUMMARY OF ENCOUNTER
The patient, a 55-year-old female, presented with severe diarrhea and vomiting, which began after consuming yogurt earlier today. Upon arrival, she exhibited signs of dehydration and had low blood pressure, which improved with administered fluids. A
CT scan was performed due to concerns about abdominal discomfort, revealing signs of colitis, which may suggest inflammation or infection. The working diagnosis is bacterial colitis, possibly food-related. Elevated white blood cell count and
impaired kidney function indicate significant physiological stress and dehydration. Given the complexity of her condition and her medication regimen, with notable interactions due to flecainide, a decision was made to admit the patient for further
monitoring and treatment with antibiotics.
DISPOSITION
The patient will be admitted to the hospital for further observation and treatment.
ASSESSMENT
Bacterial colitis with dehydration and elevated white blood cell count, likely necessitating hospital admission for antibiotics and monitoring due to complex medication interactions.
MEDICATION RECONCILIATION
Known medication interactions with flecainide were considered. The patient was prescribed ceftriaxone (Rocephin) and metronidazole (Flagyl), as they do not interact with her current medication regimen.
MEDICAL DECISION MAKING
1. Number & Complexity of Problems:
- Acute bacterial colitis, complications from dehydration, potential single-event food poisoning, elevated white blood cell count, and impaired kidney function.
2. Data Reviewed:
- Labs indicating high white blood cells and impacted kidney function, CT scan showing colitis.
3. Risk:
- Considered high due to the potential for severe dehydration, renal complications, and complexity from medication interactions. The decision to admit was based on the severity of symptoms, abnormal laboratory results, and need for intravenous
antibiotics.
PATHOLOGIES TO CONSIDER
- Bacterial colitis
- Acute kidney injury
- Dehydration
INDEPENDENT REVIEW OF LABS AND INTERPRETATION OF TESTS
My independent review of the CBC showed an elevated white blood cell count. A review of kidney function tests confirmed elevated creatinine levels indicating potential acute kidney injury.
Came in by EMS due to severe diarrhea to the point she feels dehydrated and almost passed out. WBC 17.6. Was hypotensive before 2L IVF. Cr 1.6 (new). Hematochezia in ED. CT pancolitis - given Rocephin / Flagyl (safe w/ flecainide). Lipase slightly
elevated; recently started Ozempic. Notified Dr. Bowers for admission.
Past History
Past History
ED Past Medical History: Asthma, HTN, Hypercholesterolemia, Hypothyroidism and Other (Herniated disc Chronic Sinusitis, Ovarian cyst, Sigmoid colon colapse, fibromyalgia, anxiety)
ED Past Surgical History: Cholecystectomy, Orthopedic and Other (Fibromyalgia, peripheral neuropathy, gastric bypass)
Social History
Tobacco: Smoker (vaping)
Alcohol: None
Drug: None
Personal:
Living: with family
Family History
Family History: Other (n/c)
Phy Exam
Physical Exam
Physical Exam:
See HPI
Course
Orders/Labs/Results
Orders:
Orders
05/22/25 16:34
Complete Blood Count/With Diff Urgent
Comprehensive Metabolic Panel Urgent
Lipase Urgent
05/22/25 17:33
0.9% Sodium Chloride 1000 ml [Nss] 1,000 ml IV BOLUS
Famotidine [Pepcid] 40 mg PO NOW STA
Ondansetron Injectable [Zofran] 4 mg IV NOW STA
05/22/25 17:34
Electrocardiogram (*1) Urgent
Reason for Study: Syncope
EKG- Treatment ONCE
HYDROmorphone [Dilaudid] 0.5 mg IV NOW STA
05/22/25 17:49
0.9% Sodium Chloride 1000 ml [Nss] 1,000 ml IV BOLUS
05/22/25 18:43
C DIFF [C difficile Antigen & Toxins] Urgent
CATHY Source: Feces/Stool
Specimen Description:
Date Specimen was Collected: 05/22/25
Time Specimen was Collected: 17:44
Stool Culture Urgent
CATHY Source: Feces/Stool
Specimen Description:
Date Specimen was Collected: 05/22/25
Time Specimen was Collected: 17:44
05/22/25 18:48
CT Abd/pel Without Iv Or Oral Urgent
Comment:
Reason For Exam: SLAVA, N/V/D, cannot vanita po, WBC17, severe pain, BRB
05/22/25 20:08
CefTRIAXone [Rocephin] 1,000 mg IV NOW STA
MetroNIDAZOLE 500 MG/100 ML [Flagyl 500 mg] 100 ml IV NOW
Abnormal Lab Results
05/22/25 05/22/25
16:08 16:34
WBC 17.6 H 10^3/uL
(4.8-10.8)
MPV 10.5 H fL
(7.4-10.4)
Abs Immat Gran (auto) 0.1 H 10^3/uL
(0-0.05)
Absolute Neuts (auto) 13.3 H 10^3/uL
(1.4-6.5)
Absolute Monos (auto) 0.7 H 10^3/uL
(0.1-0.6)
Neutrophils % 75.3 H %
(42.2-75.2)
Lymphocytes % 19.3 L %
(20.5-51.1)
Carbon Dioxide 20 L mmol/L
(22-30)
BUN 30 H mg/dl
(7-17)
Creatinine 1.6 H mg/dL
(0.6-1.0)
Glucose 164 H mg/dl
(70-99)
Alkaline Phosphatase 163 H U/L
(38-126)
Lipase 358 H U/L
(23-300)
POC Glucose 160 H mg/dl
(70-99)
05/22/25 16:34
05/22/25 16:34
Vital Signs
Initial and Last Documented VS:
Initial Vital Signs
Temp Pulse Resp BP Pulse Ox
36.5 C 74 18 98/70 93
05/22/25 16:09 05/22/25 16:09 05/22/25 16:09 05/22/25 16:09 05/22/25 16:09
Last Documented Vital Signs
Temp Pulse Resp BP Pulse Ox
36.5 C 69 13 109/59 94
05/22/25 16:21 05/22/25 19:20 05/22/25 19:20 05/22/25 19:20 05/22/25 19:10
*Pulse Oximetry
SaO2: 100
Oxygen Mode of Delivery: Room air
Patient hypoxic: no
*Sugarcane Planter Interpretation
Rate: normal
Interpretation: normal
Heart Rate: 68
Rhythm: sinus
*Critical Care Note
Total Time (30-74mins, 75-104mins- exclusive of procedures): Not Applicable
ED Attending Note
-
Portions of this chart may have been created with voice recognition software.� Occasional wrong word or��sound alike� substitutions may have occurred due to the inherent limitations of voice recognition software.
Discharge Plan
Departure
Patient Disposition: Admit
Date of Disposition: 05/22/25
Time of Disposition: 20:54
Presentation/result/management discussed w/ accepting MD/DO: Hospitalist
Discharge Problem:
Colitis
Prescriptions:
No Action
furosemide [Lasix] 40 mg Tablet
40 mg PO DAILYPRN PRN (Reason: FLUID)
metformin 500 mg Tablet
500 mg PO DAILY
levothyroxine [Synthroid] 137 mcg Tablet
137 mcg PO DAILY
magnesium oxide 420 mg Tablet
420 mg PO DAILY
levalbuterol HCl [Xopenex] 0.63 mg/3 mL Solution For Nebulization
0.63 mg INHALATION R Q6HPRN PRN (Reason: SOB)
lisinopril 20 mg Tablet
20 mg PO DAILY
famotidine [Pepcid] 40 mg Tablet
40 mg PO DAILY
Theragen Tablet
1 tab PO DAILY
valacyclovir [Valtrex] 500 mg Tablet
500 mg PO DAILY
omeprazole 40 mg Capsule,Delayed Release(Dr/Ec)
40 mg PO DAILY
alprazolam [Xanax] 0.25 mg Tablet
0.25 mg PO DAILYPRN PRN (Reason: ANXIETY)
ascorbic acid (vitamin C) [Vitamin C With Sofi Hips] 500 mg Tablet
500 mg PO DAILY
fluticasone propion-salmeterol [Advair Diskus] 500-50 mcg/dose Blister With Device
1 inh INHALATION R BID
flecainide 100 mg Tablet
100 mg PO Q12H
hydrochlorothiazide 25 mg Tablet
25 mg PO DAILY
metaxalone [Skelaxin] 800 mg Tablet
800 mg PO BIDPRN PRN (Reason: SPASMS)
rosuvastatin [Crestor] 40 mg Tablet
40 mg PO DAILY
levalbuterol tartrate [Xopenex HFA] 45 mcg/actuation Hfa Aerosol Inhaler
2 inh INHALATION R Q6HPRN PRN (Reason: sob)
calcium carbonate-vitamin D3 [Calcium 600 + D(3)] 600 mg-10 mcg (400 unit) Tablet
1 tab PO DAILY
Ozempic 0.25 mg or 0.5 mg (2 mg/3 mL) pen injector
0.25 mg SC TH
Azo Urinary Health 500 mg-2,000 mg -15 mcg-2 mg Powder In Packet
1 ea PO DAILY
Medical Marijuana
1 applic topical DAILYPRN PRN (Reason: MOE FEET/LOWER BACK)
Referrals:
Deejay Lopez MD [Family Provider, Family Practice]
Interventions
Interventions:
*Risk Screen - Suicide Last Done: 05/22/25 16:21
*General Assessment Last Done: 05/22/25 16:21
*Neglect/Abuse Screening Last Done: 05/22/25 16:26
*ED- Fall Risk Assessment Last Done: 05/22/25 17:22
*ED COVID-19 Vaccine History Last Done: 05/22/25 17:22
ED- Cardiac Assessment Last Done: 05/22/25 16:31
ED- Neurological Assessment Last Done: 05/22/25 16:31
Discharge Date and Time
Print Language: PORTUGUESE
[2025-05-22] MEDS: DILAUDID 0.5 MG IV (18:31)
[2025-05-22] MEDS: PEPCID 40 MG PO (18:31)
[2025-05-22] MEDS: NSS 1000 IV ×3 (18:32→23:19)
[2025-05-22] MEDS: ZOFRAN 4 MG IV ×2 (18:32→20:58)
[2025-05-22] MEDS: ROCEPHIN 1000 MG IV (20:29)
[2025-05-22] MEDS: FLAGYL 500 MG 100 IV (20:29)
--- NOTE | 2025-05-22 21:01 | W.PN.UPDATE ---
Addendum entered and electronically signed by Sudheer Ballard MD 05/22/25 21:38:
HX SVT one yr ago
Evaluated by Dr Olivo ( CBC card ) and initiated Flecainide
NEG B/L CUS for THEODORE
Pending OP TTE per patient
Original Note:
Update Note
Progress Note Update
This note serves as an addendum to the H&P by craft artist GOYO Celina Dumont
HPI
55F HX Asthma/ COPD, HTN, Prx AF on Flecainide, Xanax PRN for anxiety, remote HX gastric bypass surgery , recently started on Ozempic seen at ER
- pw sudden onset of severe and significant amount of diarrhea and vomiting that started after consuming yogurt earlier today
- associated Lt sided abdominal pain and tenderness
- No recent antibiotic usage
- POS nausea, abdominal pain, and numbness of the tongue.
Hematochezia at ER
Started Ozempic 4 weeks ago
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
HX kidney stones.
Relevant vss
05/22/25
16:09 05/22/25
16:45
Temp 97.7 F
Pulse 74
Resp Rate 18
Blood pressure 98/70 91/55
SaO2 93
Oxygen Mode of Delivery Room air
PE
Obese
Gen: in distress , smell of diarrhea
HEENT: anicteric
Neck: supple
Lungs: CTA
Cor: RRR S1 S2
Abdomen: soft , tenderness over Lt abdomen
MEDICAL ASSISTANT FLOAT: AAO3
MS: no edema
Psych: appropriate
Relevant data
03/28/25 05/22/25
06:22 16:34
WBC 17.6 H
Hgb 11.1 L 12.9
Plt Count 370
Carbon Dioxide 31 H 20 L
BUN 18 H 30 H
Creatinine 0.7 1.6 H
eGFR > 60.00 37.62
Glucose 164 H
Alkaline Phosphatase 163 H
Lipase [address]/pel Without Iv Or Oral
1. MODERATE ACUTE INFECTIOUS PANCOLITIS (greatest in the descending and sigmoid colon).
2. MILD ACUTE ENTERITIS.
3. Minimal peritoneal fluid in the pelvis.
4. Mild bilateral perinephric edema.
5. 4 mm nonobstructing left lower pole intrarenal calculus.
6. Mild hepatosplenomegaly.
7. Small hiatal hernia.
8. Previous cholecystectomy.
9. Previous gastric bypass surgery with a gastrojejunal anastomosis in the upper abdomen.
10. Previous circumferential spinal fusion at L4/L5.
ASSESSMENT & PLAN
Pending Rx reconciliation
Acute pancolitis with hematochezia and Lt sided abdominal tenderness
Hypotensive due to volume depletion
Leucocytosis but afebrile
- S/P IV NS 2L and cont IV NS @100/H
- Stool for Cx and C Diff for stool
- Empiric IV CFTX and IV Metronidazole
- Hold PPI and cont H2B
- Hold Ozempic
- GI consult
Elevated Lipase due to pancolitis
- No evidence of acute pancreatitis
SLAVA - prerenal origin due to volume depletion due to acute diarrheal illness
Hypotension
Essential HTN
- Hold Frusemide and HCTZ
- Hold Lisinopril
- Trend Cr
Obesity
Remote HX GBS
- hold Ozempic for now
DVT Px: SCD
Full Code:
IP TLM
--- NOTE | 2025-05-22 21:04 | HPS.HSE ---
Family Physician
-
Family Physician: Deejay Lopez
Chief Complaint
-
nausea, vomiting and diarrhea
History of Present Illness
Patient is a 59-year-old female with past medical history significant for hypercholesterolemia, essential hypertension, hypothyroidism, anxiety, chronic obstructive pulmonary disease, aortic atherosclerosis and asthma who presented to [facility] ED for
evaluation of nausea, vomiting and diarrhea. Patient reports being in normal state of health this morning prior to consuming a yogurt. After eating the yogurt, she states within approximately 30 minutes she began with nausea, vomiting and diarrhea.
She does report blood in the stools. Reports episodes of rigors but no documented fever. Denies any cough, shortness of breath, constipation or urinary symptoms. Patient does note she recently started Ozempic with second injection being this past
05/19/2025.
Medical History
Past Medical History
Past Medical History: Reports Other
Additional Past Medical History:
hypercholesterolemia
essential hypertension
hypothyroidism
anxiety
chronic obstructive pulmonary disease
aortic atherosclerosis
asthma
PSVT (paroxysmal supraventricular tachycardia)
fibromyalgia
history of gastric bypass
lumbar radiculopathy
cervical radiculopathy
DDD (degenerative disc disease), lumbar
Past Surgical History: Reports Other
Additional Past Surgical History:
Cholecystectomy 1997
Carpal tunnel release
section 1995
gastric bypass 2002
rt knee surgery 2009
L5-S1 Interlaminar Epidural Steroid Injection 02/03/2020
lt knee surgery 2017
L5-S1 IL PADMINI 09/21/2020
C7-T1 IL PADMINI 09/13/2021
Cardiac Catheterization 03/18/18
lumbar fusion of L4 L5 Lif procedure 02/22/35
Social History
Tobacco: Former Smoker (quit 10 years ago )
Alcohol: None
Drug: Marijuana (THC lotion for pain daily )
Personal:
Living: With Family
Employment: Disabled
Family History
Family History: Not pertinent
Allergies / Home Medications
Allergies reflects when Allergies were last updated in [facility].
Home Medications with original date entered in [facility]
Allergy/Medication List:
Allergies
Allergy/AdvReac Type Severity Reaction Status Date / Time
erythromycin base Allergy swelling, Verified 03/28/25 00:26
hives
methylprednisolone Allergy Hives Verified 03/28/25 00:26
amoxicillin trihydrate (From AdvReac Unknown diarrhea Verified 03/28/25 00:26
Augmentin)
potassium clavulanate (From AdvReac Unknown diarrhea Verified 03/28/25 00:26
Augmentin)
Home Medications
Medical Marijuana 1 applic topical DAILYPRN PRN MOE FEET/LOWER BACK 05/22/25
alprazolam 0.25 mg tablet (Xanax) 0.25 mg PO DAILYPRN PRN ANXIETY 05/22/25
ascorbic acid (vitamin C) 500 mg tablet (Vitamin C With Sofi Hips) 500 mg PO DAILY 05/22/25
calcium 600 mg (as carbonate)-vitamin D3 10 mcg (400 unit) tablet (Calcium 600 + D(3)) 1 tab PO DAILY 05/22/25
famotidine 40 mg tablet (Pepcid) 40 mg PO DAILY 05/22/25
flecainide 100 mg tablet 100 mg PO Q12H 05/22/25
fluticasone 500 mcg-salmeterol 50 mcg/dose blistr powdr for inhalation (Advair Diskus) 1 inh inhalation R BID 05/22/25
furosemide 40 mg tablet (Lasix) 40 mg PO DAILYPRN PRN FLUID 05/22/25
hydrochlorothiazide 25 mg tablet 25 mg PO DAILY 05/22/25
levalbuterol HCl 0.63 mg/3 mL solution for nebulization 0.63 mg inhalation R Q6HPRN PRN SOB 05/22/25
levalbuterol tartrate 45 mcg/actuation aerosol inhaler (Xopenex HFA) 2 inh inhalation R Q6HPRN PRN sob 05/22/25
levothyroxine 137 mcg tablet (Synthroid) 137 mcg PO DAILY 05/22/25
lisinopril 20 mg tablet 20 mg PO DAILY 05/22/25
magnesium oxide 420 mg tablet 420 mg PO DAILY 05/22/25
metaxalone 800 mg tablet 800 mg PO BIDPRN PRN SPASMS 05/22/25
metformin 500 mg tablet 500 mg PO DAILY 05/22/25
omeprazole 40 mg capsule,delayed release 40 mg PO DAILY 05/22/25
rosuvastatin 40 mg tablet (Crestor) 40 mg PO DAILY 05/22/25
semaglutide 0.25 mg or 0.5 mg (2 mg/3 mL) subcutaneous pen injector (Ozempic) 0.25 mg SC TH 05/22/25
therapeutic multivitamin 1 tab PO DAILY 05/22/25
valacyclovir 500 mg tablet (Valtrex) 500 mg PO DAILY ROTOGRAVURE PRESS OPERATOR 05/22/25
vit C 500 [id number] 2,000 mg-D3 15 mcg-B6 2 mg oral powder packet (Intelen) 1 ea PO DAILY 05/22/25
Review of Systems
-
History Source: Patient
Constitutional: Reports Chills
EENT: Reports No Symptoms
Respiratory: Reports No Symptoms
Cardiac: Reports No Symptoms
Abdomen/GI: Reports Abdominal Pain, Nausea, Vomiting, Diarrhea and Bloody Stools
: Reports No Symptoms
Musculoskeletal: Reports No Symptoms
Skin: Reports No Symptoms
Neurological: Reports No Symptoms
Endocrine: Reports No Symptoms
Hematologic/Lymphatic: Reports No Symptoms
Psych: Reports No Symptoms
Physical Exam
Vital Signs
Vital Signs
Temp Pulse Resp BP Pulse Ox
97.7 F 69 13 109/59 94
05/22/25 16:21 05/22/25 19:20 05/22/25 19:20 05/22/25 19:20 05/22/25 19:10
Physical Exam
General: Well Developed, Well Nourished, No Apparent Distress, Conversant and Morbidly Obese
HEENT: NormoCephalic, Moist mucous membranes, Atraumatic, Nose Appears Normal and Ears Appear Normal
Respiratory: Clear
Cardiac: S1/S2 and Regular Rhythm
Breast: Deferred by me
GI: Soft, Non Distended, Normal Bowel Sounds and Tender
Rectal: Deferred by Provider
Genito-urinary: Deferred by me
Musculoskeletal: No Clubbing, No Cyanosis and No Edema
Skin: Warm and IV/Catheter Site
Neuro: Awake, Alert, AO x 3 and Nonfocal/grossly intact
Psych: Calm and Intact Judgment/Insight
Laboratory Results
-
05/22/25 16:34
05/22/25 16:34
Laboratory Results
Total Bilirubin 0.5 mg/dl (0.2-1.3) 05/22/25 16:34
AST 25 U/L (14-36) 05/22/25 16:34
ALT 17 U/L (0-35) 05/22/25 16:34
Alkaline Phosphatase 163 U/L (38-126) H 05/22/25 16:34
Lipase 358 U/L (23-300) H 05/22/25 16:34
Data Reviewed
-
CT Scan: Report Reviewed by me (Abd/Pel: 1. MODERATE ACUTE INFECTIOUS PANCOLITIS (greatest in the descending and sigmoid colon). 2. MILD ACUTE ENTERITIS. 3. Minimal peritoneal fluid in the pelvis. 4. Mild bilateral perinephric edema. 5. 4
mm nonobstructing left lower pole intrarenal calculus. 6. Mild hepatosplenomegaly)
Lab Data: Labs Reviewed by me (WBC 17.6, BUN 30, Creat 1.6, eGFR 37.62, Lipase 358)
Impression/Plan
-
IMPRESSION/PLAN:
#nausea, vomiting, diarrhea likely 2/2 acute pancolitis
#history of gastric bypass
WBC 17.6
Abd/Pel CT: 1. MODERATE ACUTE INFECTIOUS PANCOLITIS (greatest in the descending and sigmoid colon).
2. MILD ACUTE ENTERITIS.
3. Minimal peritoneal fluid in the pelvis.
4. Mild bilateral perinephric edema.
5. 4 mm nonobstructing left lower pole intrarenal calculus.
6. Mild hepatosplenomegaly.
7. Small hiatal hernia.
8. Previous cholecystectomy.
9. Previous gastric bypass surgery with a gastrojejunal anastomosis in the upper abdomen.
10. Previous circumferential spinal fusion at L4/L5.
- Admit to telemetry
- stool cultures, c. diff and norovirus
- Empiric IV antibiotics ceftriaxone and metronidazole
- Hold PPI
- continue H2B
- GI consult
#acute kidney injury
BUN 30, Creat 1.6, eGFR 37.62
- IVF NSS 100cc/hr
- monitor BMP
#Elevated Lipase due to pancolitis?
Lipase 358
- No evidence of acute pancreatitis
#hypercholesterolemia
- continue rosuvastatin
#essential hypertension
- Hold HCTZ and lisinopril in setting of SLAVA
#hypothyroidism
- continue levothyroxine
#obesity
s/p gastric bypass 2003
- hold metformin in setting of SLAVA
- hold Ozempic as possible contributing factor
- encourage balanced diet and exercise to promote weight loss
#anxiety
- continue PRN alprazolam
#chronic obstructive pulmonary disease
#asthma
- continue Advair and Xopenex
#PSVT (paroxysmal supraventricular tachycardia)
- continue flecainide
#fibromyalgia
#lumbar radiculopathy
#cervical radiculopathy
#DDD (degenerative disc disease), lumbar
Code status: full code
DVT prophylaxis: SCDs
[2025-05-22] MEDS: TAMBOCOR 100 MG PO (23:34)
[2025-05-22] MEDS: CRESTOR 40 MG PO (23:34)
[2025-05-23] VITALS (7 sets, daily range): BP systolic 93–130; BP diastolic 44–64; BMI 42.0
[2025-05-23] MEDS: FLAGYL 500 MG 100 IV ×3 (04:53→21:32)
[2025-05-23] MEDS: TYLENOL 650 MG PO ×2 (05:22→15:47)
[2025-05-23] MEDS: SYNTHROID 137 MCG PO (05:22)
[2025-05-23 07:21] LABS: Hematocrit 31.4 % (37.0-47.0); Hemoglobin 10.3 g/dL (12.0-16.0); Mean Corp Hgb Conc. 32.8 g/dL (33.0-37.0); Mean Corpuscular Hgb 28.8 pg (27.0-31.0); Mean Corpuscular Volume 87.7 fL (81.0-99.0); Mean Platelet Volume 10.6 fL (7.4-10.4); Platelet Count 265 10^3/uL (130-400); Red Blood Cell Count 3.58 10^6/uL (4.20-5.40); Red Cell Dist. Width 13.7 % (11.5-14.5); White Blood Cell Count 13.3 10^3/uL (4.8-10.8)
[2025-05-23 07:55] LABS: Blood Urea Nitrogen 21 mg/dl (7-17); Calcium 8.3 mg/dl (8.4-10.2); Carbon Dioxide 19 mmol/L (22-30); Chloride 110 mmol/L (98-107); Estimated Creatinine Clearance 82 ml/min; Glucose 85 mg/dl (70-99); Potassium 3.9 mmol/L (3.5-5.1); Sodium 137 mmol/L (135-145); eGFR > 60.00
[2025-05-23] MEDS: ADVAIR HFA 230/21 MCG INHALER 2 PUFF INH ×2 (07:59→19:18)
[2025-05-23] MEDS: TAMBOCOR 100 MG PO ×2 (08:00→21:32)
[2025-05-23] MEDS: PEPCID 20 MG PO (08:01)
[2025-05-23] MEDS: MAG-TAB SR 84 MG PO (08:01)
[2025-05-23] MEDS: NSS 1000 IV ×2 (08:13→21:33)
--- NOTE | 2025-05-23 09:16 | W.PN.HOSP.TC ---
Today's Communication/Plan
-
IVF
Pain medicine
Abx
f/w GI recommnedations
Assessment / Plan
Assessment / Plan
Physical Exam
General: Well Developed, Well Nourished, No Apparent Distress, Conversant
HEENT: NormoCephalic, Moist mucous membranes, Atraumatic, Nose Appears Normal and Ears Appear Normal
Respiratory: Clear
GI: Soft, Non Distended, Normal Bowel Sounds, mild diffuse lower tenderness.
Rectal: + rectal bleeding noted before
Genito-urinary: Deferred by me
Musculoskeletal: No Clubbing, No Cyanosis and No Edema
Neuro: Awake, Alert, AO x 3 and Nonfocal/grossly intact
Psych: Calm and Intact Judgment/Insight
A/P:
#Acute pancolitis
#history of gastric bypass
WBC 17.6
WBC is coming down
No fevers
less abd pain
leukocytosis, colitis,
c/w empiric Abx
Negative Noro and C. difficile.
Seems related to possible ingestion of yogurt?
Await stool testing
Patient did not want pain medicine as morphine. Tylenol was ordered. Will try low-dose tramadol
Appreciate GI help
# mild acute blood loss anemia due to colitis
Monitor HGB
BP stable
#acute kidney injury
Hypovolemic shock , resolved
Resolved
#Elevated Lipase due to pancolitis
Lipase 358
- No evidence of acute pancreatitis
#hypercholesterolemia
- continue rosuvastatin
#essential hypertension
- Ok to resume HCTZ and lisinopril when able
#hypothyroidism
- continue levothyroxine
#obesity
s/p gastric bypass 2003
- hold metformin in setting of SLAVA
- hold Ozempic as possible contributing factor
- encourage balanced diet and exercise to promote weight loss
#anxiety
- continue PRN alprazolam
#chronic obstructive pulmonary disease
#asthma
- continue Advair and Xopenex
#PSVT (paroxysmal supraventricular tachycardia)
- continue flecainide
#fibromyalgia
#lumbar radiculopathy
#cervical radiculopathy
#DDD (degenerative disc disease), lumbar
Code status: full code
Total time spent to see the patient, examine the patient, review data and lab result, discuss treatment plan with patient, nursing staff around 55 minutes
Anticipated Discharge: > 48 hours
Subjective/Interval History
-
Date of Service: May 23, 2025
Less abdominal pain
No fevers
Objective Data
-
Labs:
Laboratory Results
05/23/25
06:24
WBC 13.3 H
Hgb 10.3 L D
Hct 31.4 L
Plt Count 265 D
Sodium 137
Potassium 3.9
Chloride 110 H
Carbon Dioxide 19 L
BUN 21 H
Creatinine 0.9
Glucose 85
Calcium 8.3 L
Vital Signs:
Vital Signs
Temp Pulse Resp BP Pulse Ox
98.6 F 77 16 111/52 96
05/23/25 07:35 05/23/25 07:35 05/23/25 07:35 05/23/25 07:35 05/23/25 07:35
I&O
05/22/25 05/23/25 05/24/25
06:59 06:59 06:59
Intake Total 240 / 240
Balance 240 / 240
--- NOTE | 2025-05-23 10:12 | CON.GI ---
Addendum entered and electronically signed by Daryl Romero MD 05/23/25 11:29:
I saw and examined the patient.
The AREA CAPTAIN's note was reviewed and I agree with the note.
-- Acute onset nausea/vomiting/diarrhea (currently some blood with stools)/CT imaging enterocolitis/leukocytosis-likely gastroenteritis versus food poisoning versus adverse reaction with medication etc
-- Recently started on metformin/Ozempic
- History of Jr-en-Y gastric bypass
plan
Check stool studies for infection
IV hydration.
Continue antibiotic started by medical team for now
Okay with clear liquid diet
Antiemetics as needed
Recommend outpatient GI [id number] as outpatient in 8 to 12 weeks ( last colonoscopy 2013 )
Original Note:
Consultation
-
Date/Time Consultation Requested: 05/22/232
Date/Time Consultation Performed: 05/23/2530
Requesting Provider: MAYRA Lake
Performing Provider: Dr. Romero/MAYRA Pineda
Reason for Consultation: acute pancolitis
Medical History
Chief Complaint / HPI
Chief Complaint: n/v/d
History of Present Illness:
55-year-old female past medical history of hypertension, hyperlipidemia, hypothyroidism, chronic sinusitis, ovarian cyst, fibromyalgia, anxiety, asthma, diabetes, GERD, history of SVT, chronic pain with history of degenerative disc disease, history
of Jr-en-Y gastric bypass, with recent start of Ozempic 2 weeks ago as well as metformin for hemoglobin A1c of 6 who presents to the emergency room with acute onset of nausea, vomiting and diarrhea with progression to bloody stools. The patient
states that approximate 2 weeks ago she changed her eating habits to lower glycemic index diet. She states that Yesterday a.m. she ate a yogurt approximately 30 minutes later she developed acute onset of nausea and vomiting. Shortly thereafter has
had multiple episodes of diarrhea. She states that she felt faint had a tunnellike vision sensation. After that came to the emergency room for further evaluation. Since that time still had multiple episodes of nausea and vomiting. Diarrhea
progressed to have some streaks of blood throughout it. We are asked to evaluate for same. she states that she felt feverish. Current time she is on a clear liquid diet however does not feel like eating. Prior to her yogurt she did have eggs
with spinach, onions and peppers. She denies any recent travel, changes in medication other than the Ozempic and metformin. No recent antibiotics, no recent travel. Denies any raw meat or seafood. She denies any family history of inflammatory
bowel disease. Her last colonoscopy was in 2013. She is due at this time for a 10-year recall.
Past Medical History
Past Medical History: Other (Hypertension, hyperlipidemia, hypothyroidism, chronic sinusitis, ovarian cyst, fibromyalgia, anxiety, asthma, diabetes, GERD, SVT, chronic pain, degenerative disc disease,)
Past Surgical History: Other (Jr-en-Y gastric bypass (2002), cholecystectomy, carpal tunnel release, section, right knee surgery, lumbar fusion, cardiac cath)
Social History
Tobacco: Former Smoker
Alcohol: None
Drug: Marijuana
Personal:
Living: With Family
Family History
Family History: Other (No family history of inflammatory bowel disease, believes paternal grandfather may have had gastric or colon cancer)
Allergies / Home Medications
Allergy/AdvReac Type Severity Reaction Status Date / Time
erythromycin base Allergy swelling, Verified 03/28/25 00:26
hives
methylprednisolone Allergy Hives Verified 03/28/25 00:26
amoxicillin trihydrate (From AdvReac Unknown diarrhea Verified 03/28/25 00:26
Augmentin)
potassium clavulanate (From AdvReac Unknown diarrhea Verified 03/28/25 00:26
Augmentin)
�Medication �Instructions �Recorded
Medical Marijuana 1 applic topical DAILYPRN PRN MOE 05/22/25
FEET/LOWER BACK
alprazolam 0.25 mg tablet (Xanax) 0.25 mg PO DAILYPRN PRN ANXIETY 05/22/25
ascorbic acid (vitamin C) 500 mg 500 mg PO DAILY 05/22/25
tablet (Vitamin C With Sofi Hips)
calcium 600 mg (as 1 tab PO DAILY 05/22/25
carbonate)-vitamin D3 10 mcg (400
unit) tablet (Calcium 600 + D(3))
famotidine 40 mg tablet (Pepcid) 40 mg PO DAILY 05/22/25
flecainide 100 mg tablet 100 mg PO Q12H 05/22/25
fluticasone 500 mcg-salmeterol 50 1 inh inhalation R BID 05/22/25
mcg/dose blistr powdr for
inhalation (Advair Diskus)
furosemide 40 mg tablet (Lasix) 40 mg PO DAILYPRN PRN FLUID 05/22/25
hydrochlorothiazide 25 mg tablet 25 mg PO DAILY 05/22/25
levalbuterol HCl 0.63 mg/3 mL 0.63 mg inhalation R Q6HPRN PRN SOB 05/22/25
solution for nebulization
levalbuterol tartrate 45 2 inh inhalation R Q6HPRN PRN sob 05/22/25
mcg/actuation aerosol inhaler
(Xopenex HFA)
levothyroxine 137 mcg tablet 137 mcg PO DAILY 05/22/25
(Synthroid)
lisinopril 20 mg tablet 20 mg PO DAILY 05/22/25
magnesium oxide 420 mg tablet 420 mg PO DAILY 05/22/25
metaxalone 800 mg tablet 800 mg PO BIDPRN PRN SPASMS 05/22/25
metformin 500 mg tablet 500 mg PO DAILY 05/22/25
omeprazole 40 mg capsule,delayed 40 mg PO DAILY 05/22/25
release
rosuvastatin 40 mg tablet (Crestor) 40 mg PO DAILY 05/22/25
semaglutide 0.25 mg or 0.5 mg (2 0.25 mg SC TH 05/22/25
mg/3 mL) subcutaneous pen injector
(Ozempic)
therapeutic multivitamin 1 tab PO DAILY 05/22/25
valacyclovir 500 mg tablet 500 mg PO DAILY CORRECTION 05/22/25
(Valtrex)
vit C 500 [id number] 2,000 mg-D3 1 ea PO DAILY 05/22/25
15 mcg-B6 2 mg oral powder packet
([facility])
Review of Systems
-
All other systems: A 12 pt ROS was Negative except as stated above in HPI
Vital Signs
Temp Pulse Resp BP Pulse Ox
98.6 F 76 16 111/52 96
05/23/25 07:35 05/23/25 08:00 05/23/25 08:00 05/23/25 07:35 05/23/25 08:00
Physical Exam
Exam
General: No Apparent Distress
HEENT: Anicteric
Respiratory: Clear
Cardiac: Regular Rhythm
GI: Soft, Non Distended, Normal Bowel Sounds and Tender (Mild tenderness epigastric/mid abdomen/left upper quadrant)
Skin: Warm and Dry
Neuro: AO x 3
Psych: Calm
Results
WBC 13.3 10^3/uL (4.8-10.8) H 05/23/25 06:24
Hgb 10.3 g/dL (12.0-16.0) L D 05/23/25 06:24
Hct 31.4 % (37.0-47.0) L 05/23/25 06:24
MCV 87.7 fL (81.0-99.0) 05/23/25 06:24
Plt Count 265 10^3/uL (130-400) D 05/23/25 06:24
Absolute Neuts (auto) 13.3 10^3/uL (1.4-6.5) H 05/22/25 16:34
Sodium 137 mmol/L (135-145) 05/23/25 06:24
Potassium 3.9 mmol/L (3.5-5.1) 05/23/25 06:24
Chloride 110 mmol/L (98-107) H 05/23/25 06:24
Carbon Dioxide 19 mmol/L (22-30) L 05/23/25 06:24
BUN 21 mg/dl (7-17) H 05/23/25 06:24
Creatinine 0.9 mg/dL (0.6-1.0) 05/23/25 06:24
Calcium 8.3 mg/dl (8.4-10.2) L 05/23/25 06:24
Total Bilirubin 0.5 mg/dl (0.2-1.3) 05/22/25 16:34
AST 25 U/L (14-36) 05/22/25 16:34
ALT 17 U/L (0-35) 05/22/25 16:34
Alkaline Phosphatase 163 U/L (38-126) H 05/22/25 16:34
Lipase 358 U/L (23-300) H 05/22/25 16:34
Diagnostic Image Results:
CT abdomen and pelvis with oral or IV contrast:
IMPRESSION:
1. MODERATE ACUTE INFECTIOUS PANCOLITIS (greatest in the descending and sigmoid colon).
2. MILD ACUTE ENTERITIS.
3. Minimal peritoneal fluid in the pelvis.
4. Mild bilateral perinephric edema.
5. 4 mm nonobstructing left lower pole intrarenal calculus.
6. Mild hepatosplenomegaly.
7. Small hiatal hernia.
8. Previous cholecystectomy.
9. Previous gastric bypass surgery with a gastrojejunal anastomosis in the upper abdomen.
10. Previous circumferential spinal fusion at L4/L5.
Prior GI Procedures:
EGD: 02/23/2014 ([facility])
- Z-line regular, 35 cm from the incisors.
- Jr-en-Y gastrojejunostomy. The gastrojejunal
anastomosis had healthy appearing mucosa.
Colonoscopy:02/23/2014 ([facility]pesh)
- The examined portion of the ileum was normal.
- The entire examined colon is normal on direct and
retroflexion views.
Assessment / Plan
-
55-year-old female past medical history of hypertension, hyperlipidemia, hypothyroidism, chronic sinusitis, ovarian cyst, fibromyalgia, anxiety, asthma, diabetes, GERD, history of SVT, chronic pain with history of degenerative disc disease, history
of Jr-en-Y gastric bypass, with recent start of Ozempic 2 weeks ago as well as metformin for hemoglobin A1c of 6 who presents to the emergency room with acute onset of nausea, vomiting and diarrhea with progression to bloody stools. The patient
states that approximate 2 weeks ago she changed her eating habits to lower glycemic index diet. She states that Yesterday a.m. she ate a yogurt approximately 30 minutes later she developed acute onset of nausea and vomiting. Shortly thereafter has
had multiple episodes of diarrhea. She states that she felt faint had a tunnellike vision sensation. After that came to the emergency room for further evaluation. Since that time still had multiple episodes of nausea and vomiting. Diarrhea
progressed to have some streaks of blood throughout it. We are asked to evaluate for same. Stool negative for C. difficile. Stool culture pending, norovirus pending. WBC 13.3 down from 17.6, hemoglobin 10.3 down from 12.9 baseline appears to be
11.1. Platelets 265, WBC of 137, potassium 3.9, BUN 21, creatinine 0.9 (down from 30 and 1.6), lipase 358. CT abdomen and pelvis without oral or IV contrast shows moderate acute infectious pancolitis greatest in the descending and sigmoid colon.
Mild acute enteritis. Minimal peritoneal fluid in the pelvis. Mild bilateral perinephric edema. Mild hepatosplenomegaly. Small hiatal hernia. Previous cholecystectomy. 4 mm nonobstructing left lower pole intrarenal calculus. Previous gastric
bypass surgery with gastrojejunal anastomosis in the upper abdomen. Previous circumferential spinal fusion L4/L5.
Impression:
N/V/D-> likely infectious enterocolitis versus foodborne
History of Jr-en-Y gastric bypass
Recent GLP-1 initiation/Metformin (2 weeks ago)
SLAVA, improved
Plan:
-Await stool studies
-Continue ceftriaxone and Flagyl for now
-Continue IV fluids, clear liquids when patient can tolerate. At the current time patient states she is still feeling slightly queasy.
-Trend labs
-Will need colonoscopy in approximately 8 weeks.
- Patient usually on omeprazole 40 mg in the morning and famotidine 40 mg in the evening will adjust current meds to reflect.
- Further recommendations to be forthcoming
-
-
Thank you for consultation and allowing me to participate in the patient's care. Please call the vice president corporate communications GI physician during the after hours with any questions or concerns.
[2025-05-23] MEDS: ULTRAM 25 MG PO ×2 (10:32→18:15)
--- NOTE | 2025-05-23 10:37 | CM ---
Reviewed the chart notes and spoke with the patient and her daughter at the bedside. The patient resides with her spouse in a one story home with one step to enter and two steps to bedroom. The patient reports only DME is a nebulizer. The patient
has had [facility] in the past, but no SNF. The patient confirmed [facility] choice [facility]. CM continues to be available to patient/family and is monitoring medical plan for needs at discharge.
Plan: Discharge to home when medically stable. No needs anticipated at this time.
[2025-05-23] MEDS: PROTONIX 40 MG PO (11:50)
[2025-05-23] MEDS: ZOFRAN 4 MG IV (11:57)
[2025-05-23] MEDS: CRESTOR 40 MG PO (17:05)
--- NOTE | 2025-05-23 19:46 | PTCARENOTE ---
Patient with oral temp 100.3F for 1500 vitals, medicated with PRN tylenol, repeat temp after administration 98.5F. MD aware of temp. Patient states abd discomfort rated 5/10 with associated nausea partially relieved with PRN zofran and tramadol
throughout shift - see MAR. IVF infusing, patient ambulatory in room to BSC or bathroom, ringing appropriately for assistance, mod loose brown/mucoid stool in commode this afternoon.
[2025-05-23] MEDS: ROCEPHIN 1000 MG IV (21:32)
[2025-05-23] MEDS: PEPCID 40 MG PO (21:32)
[2025-05-23] MEDS: STERILE WATER FOR INJECTION 10 ML IV (21:32)
[2025-05-23] MEDS: MORPHINE SULFATE 2 MG IV (21:36)
[2025-05-24 03:17] VITALS: BP 120/60
[2025-05-24] MEDS: FLAGYL 500 MG 100 IV ×3 (05:05→20:45)
[2025-05-24] MEDS: TYLENOL 650 MG PO ×2 (05:13→23:15)
[2025-05-24] MEDS: SYNTHROID 137 MCG PO (05:13)
[2025-05-24 07:00] VITALS: BP 109/61
[2025-05-24] MEDS: ADVAIR HFA 230/21 MCG INHALER 2 PUFF INH ×2 (07:50→20:06)
[2025-05-24] MEDS: PROTONIX 40 MG PO (08:21)
[2025-05-24] MEDS: MAG-TAB SR 84 MG PO (08:21)
[2025-05-24] MEDS: PEPCID 20 MG PO (08:21)
[2025-05-24] MEDS: TAMBOCOR 100 MG PO ×2 (08:21→20:45)
[2025-05-24] MEDS: NSS 1000 IV (08:21)
--- NOTE | 2025-05-24 09:09 | W.PN.HOSP.TC ---
Addendum entered and electronically signed by Boris Rolle MD 05/24/25 11:02:
Addendum
Acute blood loss anemia due to rectal bleeding
Holding heparin/ Lovenox
repeat CBC in am
End
Original Note:
Today's Communication/Plan
-
Order blood culture
advance diet slowly
Assessment / Plan
Assessment / Plan
Physical Exam
General: Well Developed, Well Nourished, No Apparent Distress, Conversant
HEENT: NormoCephalic, Moist mucous membranes, Atraumatic, Nose Appears Normal and Ears Appear Normal
Respiratory: Clear
GI: Soft, Non Distended, Normal Bowel Sounds, mild diffuse lower tenderness.
Rectal: + rectal bleeding noted before
Genito-urinary: Deferred by me
Musculoskeletal: No Clubbing, No Cyanosis and No Edema
Neuro: Awake, Alert, AO x 3 and Nonfocal/grossly intact
Psych: Calm and Intact Judgment/Insight
A/P:
#Acute pancolitis
#history of gastric bypass
WBC 17.6
WBC is coming down
had fever
combination of leukocytosis, fever, colitis, seems c/w sepsis POA
Much less abd pain
c/w empiric Abx
Negative Noro and C. difficile.
Seems related to possible ingestion of yogurt?
Await stool testing
Order blood culture 05/23 due to fever
Patient did not want pain medicine as morphine. Tylenol was ordered. Will try low-dose tramadol
Appreciate GI help
# mild acute blood loss anemia due to colitis
Monitor HGB
BP stable
#acute kidney injury
Hypovolemic shock/ septic shock , resolved
Resolved
#Elevated Lipase due to pancolitis
Lipase 358
- No evidence of acute pancreatitis
#hypercholesterolemia
- continue rosuvastatin
#essential hypertension
- Ok to resume HCTZ and lisinopril when able
#hypothyroidism
- continue levothyroxine
#obesity
s/p gastric bypass 2003
- hold metformin in setting of SLAVA
- hold Ozempic as possible contributing factor
- encourage balanced diet and exercise to promote weight loss
#anxiety
- continue PRN alprazolam
#chronic obstructive pulmonary disease
#asthma
- continue Advair and Xopenex
#PSVT (paroxysmal supraventricular tachycardia)
- continue flecainide
#fibromyalgia
#lumbar radiculopathy
#cervical radiculopathy
#DDD (degenerative disc disease), lumbar
Code status: full code
Total time spent to see the patient, examine the patient, review data and lab result, discuss treatment plan with patient, nursing staff around 55 minutes
Anticipated Discharge: > 48 hours
Subjective/Interval History
-
Date of Service: May 24, 2025
Doing well
No sob
No nausea
No chest pain
Less abdominal cramps
No diarrhea
Objective Data
-
Vital Signs:
Vital Signs
Temp Pulse Resp BP Pulse Ox
97.9 F 71 15 109/61 98
05/24/25 07:00 05/24/25 07:57 05/24/25 07:57 05/24/25 07:00 05/24/25 07:57
I&O
05/23/25 05/24/25 05/25/25
06:59 06:59 06:59
Intake Total 240 / 240 2420 / 2420
Output Total 850 / 850
Balance 240 / 240 1570 / 1570
--- NOTE | 2025-05-24 09:20 | CM ---
Reviewed the chart notes. Patient's diet advanced to full liquids. CM continues to be available to patient/family and is monitoring medical plan for needs at discharge.
Plan: Discharge to home when medically stable. No anticipated needs identified at this time.
--- NOTE | 2025-05-24 09:50 | PTCARENOTE ---
pt aaox3. states abd pain improving char filter tank tender head. stool frequency decreased and less loose no blood in last bm. ivf running as ordered
[2025-05-24 11:00] VITALS: BP 118/63
--- NOTE | 2025-05-24 11:31 | W.PN.GI.CBS2 ---
Addendum entered and electronically signed by Melanie Mejia Do, MD 05/25/25 08:28:
I saw and examined the patient.
The MEDICAL SOCIAL CONSULTANT's note was reviewed and I agree with the note.
Comment: Patient was seen on 05/24 this is delayed entry. She continues with abd pain feeling of fullness. Vitals stable exam obese abdomen TTP epigastric. Labs reviewed stool studies negative thus far
Recommendation
-AXR
-Adv diet as tolerates
-Await rest of stool studies
-Stop ozempic
Will follow with you
Original Note:
Today's Communication / Plan
-
Abdominal x-ray
Low residue diet
Assessment / Plan
-
55-year-old female past medical history of hypertension, hyperlipidemia, hypothyroidism, chronic sinusitis, ovarian cyst, fibromyalgia, anxiety, asthma, diabetes, GERD, history of SVT, chronic pain with history of degenerative disc disease, history
of Jr-en-Y gastric bypass, with recent start of Ozempic 2 weeks ago as well as metformin for hemoglobin A1c of 6 who presents to the emergency room with acute onset of nausea, vomiting and diarrhea with progression to bloody stools. The patient
states that approximate 2 weeks ago she changed her eating habits to lower glycemic index diet. She states that Yesterday a.m. she ate a yogurt approximately 30 minutes later she developed acute onset of nausea and vomiting. Shortly thereafter has
had multiple episodes of diarrhea. She states that she felt faint had a tunnellike vision sensation. After that came to the emergency room for further evaluation. Since that time still had multiple episodes of nausea and vomiting. Diarrhea
progressed to have some streaks of blood throughout it. We are asked to evaluate for same. Stool negative for C. difficile. Stool culture pending, norovirus pending. WBC 13.3 down from 17.6, hemoglobin 10.3 down from 12.9 baseline appears to be
11.1. Platelets 265, WBC of 137, potassium 3.9, BUN 21, creatinine 0.9 (down from 30 and 1.6), lipase 358. CT abdomen and pelvis without oral or IV contrast shows moderate acute infectious pancolitis greatest in the descending and sigmoid colon.
Mild acute enteritis. Minimal peritoneal fluid in the pelvis. Mild bilateral perinephric edema. Mild hepatosplenomegaly. Small hiatal hernia. Previous cholecystectomy. 4 mm nonobstructing left lower pole intrarenal calculus. Previous gastric
bypass surgery with gastrojejunal anastomosis in the upper abdomen. Previous circumferential spinal fusion L4/L5.
Impression:
N/V/D-> likely infectious enterocolitis versus foodborne
History of Jr-en-Y gastric bypass
Recent GLP-1 initiation/Metformin (2 weeks ago)
SLAVA, improved
Plan:
-Await stool studies, C. difficile and norovirus negative.
-Await blood cultures
-Continue ceftriaxone and Flagyl for now
-Check abdominal x-ray to evaluate for stool burden
-Trend labs
-Advance to low residue diet
-Will need colonoscopy in approximately 8 weeks.
- Continue on omeprazole 40 mg in the morning and famotidine 40 mg in the evening
Subjective
Subjective
Date of Service: May 24, 2025
Patient with small loose brown BM with mucous late last evening. No further bloody BM. WBC 13.3 down from 17.6, hemoglobin 10.3 down from 12.9. Norovirus negative, C. difficile negative, other stool cultures pending. Patient continues on
ceftriaxone and Flagyl. Blood cultures x 2 pending. Tolerating full liquid diet however still has abdominal spasm. Would like to try to advance to solid diet.
Objective
Data Reviewed
Laboratory Data:
Laboratory Results
05/23/25 06:24
05/23/25 06:24
Laboratory Results
Total Bilirubin 0.5 mg/dl (0.2-1.3) 05/22/25 16:34
AST 25 U/L (14-36) 05/22/25 16:34
ALT 17 U/L (0-35) 05/22/25 16:34
Alkaline Phosphatase 163 U/L (38-126) H 05/22/25 16:34
Lipase 358 U/L (23-300) H 05/22/25 16:34
Vital Signs and I&O:
Vital Signs
Temp Pulse Resp BP Pulse Ox
97.9 F 71 15 109/61 98
05/24/25 07:00 05/24/25 07:57 05/24/25 07:57 05/24/25 07:00 05/24/25 07:57
I&O
05/23/25 05/24/25 05/25/25
06:59 06:59 06:59
Intake Total 240 / 240 2420 / 2420
Output Total 850 / 850
Balance 240 / 240 1570 / 1570
Physical Exam
Physical Exam
HEENT: Anicteric
Cardiology: Normal Sinus Rhythm
Pulmonary: Clear
GI: Soft, Non Distended, Tender (Mild epigastric/mid abdominal tenderness) and Normal Bowel Sounds
Extremities: No Edema
Neuro: Non Focal
[2025-05-24] MEDS: ULTRAM 25 MG PO (11:40)
[2025-05-24] MEDS: ZOFRAN 4 MG IV ×2 (13:40→23:15)
[2025-05-24 15:00] VITALS: BP 122/64
[2025-05-24] MEDS: XANAX 0.25 MG PO (15:53)
[2025-05-24] MEDS: CRESTOR 40 MG PO (17:22)
--- NOTE | 2025-05-24 18:47 | PTCARENOTE ---
Patient c/o abd discomfort and bloating throughout shift with occasional nausea, medicated with PRN tramadol and zofran with partial relief of symptoms - see JAN. Patient states passing gas, had loose dark brown BM this afternoon in bathroom. GI
communicated with patient regarding abd xray results showing ileus, diet order changed to full liquids per GI.
[2025-05-24 19:35] VITALS: BP 127/73
[2025-05-24] MEDS: ROCEPHIN 1000 MG IV (20:45)
[2025-05-24] MEDS: STERILE WATER FOR INJECTION 10 ML IV (20:45)
[2025-05-24] MEDS: PEPCID 40 MG PO (20:51)
[2025-05-24 23:30] VITALS: BP 113/65
[2025-05-25 03:13] VITALS: BP 118/62
[2025-05-25] MEDS: FLAGYL 500 MG 100 IV (05:16)
[2025-05-25] MEDS: SYNTHROID 137 MCG PO (05:17)
[2025-05-25 07:00] VITALS: BP 120/59
[2025-05-25 07:23] LABS: Hematocrit 28.4 % (37.0-47.0); Hemoglobin 9.3 g/dL (12.0-16.0); Mean Corp Hgb Conc. 32.7 g/dL (33.0-37.0); Mean Corpuscular Hgb 28.9 pg (27.0-31.0); Mean Corpuscular Volume 88.2 fL (81.0-99.0); Mean Platelet Volume 10.5 fL (7.4-10.4); Platelet Count 220 10^3/uL (130-400); Red Blood Cell Count 3.22 10^6/uL (4.20-5.40); Red Cell Dist. Width 13.7 % (11.5-14.5); White Blood Cell Count 7.1 10^3/uL (4.8-10.8)
[2025-05-25] MEDS: ADVAIR HFA 230/21 MCG INHALER 2 PUFF INH ×2 (07:32→20:36)
[2025-05-25] MEDS: PEPCID 20 MG PO (08:04)
[2025-05-25] MEDS: PROTONIX 40 MG PO (08:05)
[2025-05-25] MEDS: MAG-TAB SR 84 MG PO (08:05)
[2025-05-25] MEDS: TAMBOCOR 100 MG PO ×2 (08:05→19:43)
[2025-05-25 08:16] LABS: ALT (SGPT) 10 U/L (0-35); AST (SGOT) 15 U/L (14-36); Albumin 3.2 g/dl (3.5-5.0); Alkaline Phosphatase 71 U/L (38-126); Blood Urea Nitrogen 4 mg/dl (7-17); Calcium 8.5 mg/dl (8.4-10.2); Carbon Dioxide 26 mmol/L (22-30); Chloride 107 mmol/L (98-107); Estimated Creatinine Clearance 123 ml/min; Glucose 86 mg/dl (70-99); Potassium 3.6 mmol/L (3.5-5.1); Sodium 139 mmol/L (135-145); Total Bilirubin 0.2 mg/dl (0.2-1.3); Total Protein 5.3 g/dl (6.3-8.2); eGFR > 60.00
--- NOTE | 2025-05-25 09:15 | W.PN.GI.CBS2 ---
Today's Communication / Plan
-
Low residue diet
Ok for hosp d/c today if tolerates above from GI perspective
OP EGD/colon to be arranged by my office.
Assessment / Plan
-
55-year-old female past medical history of hypertension, hyperlipidemia, hypothyroidism, chronic sinusitis, ovarian cyst, fibromyalgia, anxiety, asthma, diabetes, GERD, history of SVT, chronic pain with history of degenerative disc disease, history
of Jr-en-Y gastric bypass, with recent start of Ozempic 2 weeks ago as well as metformin for hemoglobin A1c of 6 who presents to the emergency room with acute onset of nausea, vomiting and diarrhea with progression to bloody stools. The patient
states that approximate 2 weeks ago she changed her eating habits to lower glycemic index diet. She states that Yesterday a.m. she ate a yogurt approximately 30 minutes later she developed acute onset of nausea and vomiting. Shortly thereafter has
had multiple episodes of diarrhea. She states that she felt faint had a tunnellike vision sensation. After that came to the emergency room for further evaluation. Since that time still had multiple episodes of nausea and vomiting. Diarrhea
progressed to have some streaks of blood throughout it. We are asked to evaluate for same. Stool negative for C. difficile. Stool culture pending, norovirus pending. WBC 13.3 down from 17.6, hemoglobin 10.3 down from 12.9 baseline appears to be
11.1. Platelets 265, WBC of 137, potassium 3.9, BUN 21, creatinine 0.9 (down from 30 and 1.6), lipase 358. CT abdomen and pelvis without oral or IV contrast shows moderate acute infectious pancolitis greatest in the descending and sigmoid colon.
Mild acute enteritis. Minimal peritoneal fluid in the pelvis. Mild bilateral perinephric edema. Mild hepatosplenomegaly. Small hiatal hernia. Previous cholecystectomy. 4 mm nonobstructing left lower pole intrarenal calculus. Previous gastric
bypass surgery with gastrojejunal anastomosis in the upper abdomen. Previous circumferential spinal fusion L4/L5.
Impression:
N/V/D-> likely infectious enterocolitis versus foodborne
Ileus in setting of GLP1
History of Jr-en-Y gastric bypass
Recent GLP-1 initiation/Metformin (2 weeks ago)
SLAVA, improved
Plan:
- Stool studies negative
- Passing gas/stools
- Advised to not resume GLP1 agents
- Continue on omeprazole 40 mg in the morning and famotidine 40 mg in the evening
- Adv to low residue diet if tolerates ok from GI perspective for hosp d/c later today
- Will need OP EGD and colonoscopy my office will reach out to schedule
GI will sign off please call for ?.
Subjective
Subjective
Date of Service: May 25, 2025
Her AXR showed ileus yesterday. Today she passed BMs and gas. She feels improved discomfort is 3 out of 10. Eager for diet to be advanced
Objective
Data Reviewed
Laboratory Data:
Laboratory Results
05/25/25 06:29
05/25/25 06:29
Laboratory Results
Total Bilirubin 0.2 mg/dl (0.2-1.3) 05/25/25 06:29
AST 15 U/L (14-36) 05/25/25 06:29
ALT 10 U/L (0-35) 05/25/25 06:29
Alkaline Phosphatase 71 U/L (38-126) 05/25/25 06:29
Lipase 358 U/L (23-300) H 05/22/25 16:34
Vital Signs and I&O:
Vital Signs
Temp Pulse Resp BP Pulse Ox
98.2 F 69 20 120/59 96
05/25/25 07:00 05/25/25 07:00 05/25/25 07:00 05/25/25 07:00 05/25/25 07:00
I&O
05/24/25 05/25/25 05/26/25
06:59 06:59 06:59
Intake Total 2420 / 2420 1310 / 1310
Output Total 850 / 850
Balance 1570 / 1570 1310 / 1310
Physical Exam
Physical Exam
GEN: No acute distress, conversant, pleasant
HEENT: anicteric, extraocular movements intact, clear oropharynx without exudates
GI: soft, obese non-distended, not tender to palpation, normal active bowel sounds, no hepatosplenomegaly
EXT: warm, well perfused, no edema bilaterally
NEURO: AAOx3, non-focal
--- NOTE | 2025-05-25 09:31 | W.PN.HOSP.TC ---
Today's Communication/Plan
-
Advance diet as tolerated.
Assessment / Plan
Assessment / Plan
Physical Exam
General: Well Developed, Well Nourished, No Apparent Distress, Conversant
HEENT: NormoCephalic, Moist mucous membranes, Atraumatic, Nose Appears Normal and Ears Appear Normal
Respiratory: Clear
GI: Soft, Non Distended, Normal Bowel Sounds, mild diffuse lower tenderness.
Rectal: + rectal bleeding noted before
Genito-urinary: Deferred by me
Musculoskeletal: No Clubbing, No Cyanosis and No Edema
Neuro: Awake, Alert, AO x 3 and Nonfocal/grossly intact
Psych: Calm and Intact Judgment/Insight
A/P:
#Acute pancolitis
#history of gastric bypass
WBC is normal now.
No more fever
combination of leukocytosis, fever, colitis, seems c/w sepsis POA
No abd pain
s/p empiric Abx
Negative Noro and C. difficile.
Seems related to possible ingestion of yogurt?
Negative stool culture.
Stopped Flagyl due to nausea.
Order blood culture 05/23 due to fever , no growth.
Patient did not want pain medicine as morphine. Tylenol was ordered. Tried low-dose tramadol
Appreciate GI help
# mild acute blood loss anemia due to colitis
Monitored HGB
BP stable
#acute kidney injury, normal kidney function
Hypovolemic shock/ septic shock , resolved
Resolved
#Elevated Lipase due to pancolitis
Lipase 358
- No evidence of acute pancreatitis
#hypercholesterolemia
- continue rosuvastatin
#essential hypertension
- Ok to resume HCTZ and lisinopril when able
#hypothyroidism
- continue levothyroxine
#obesity
s/p gastric bypass 2003
- Can resume metformin in setting of SLAVA
- held Ozempic as possible contributing factor , she was advised by GO to stop it.
- encourage balanced diet and exercise to promote weight loss
#anxiety
- continue PRN alprazolam
#chronic obstructive pulmonary disease
#asthma
No cough
No hypoxia
No wheezes on exam.
- continue Advair and Xopenex
#PSVT (paroxysmal supraventricular tachycardia)
- continue flecainide
#fibromyalgia
#lumbar radiculopathy
#cervical radiculopathy
#DDD (degenerative disc disease), lumbar
Code status: full code
Total time spent to see the patient, examine the patient, review data and lab result, discuss treatment plan with patient, nursing staff around 55 minutes
Anticipated Discharge: Within 24 hours
Subjective/Interval History
-
Date of Service: May 25, 2025
Doing better
No abdominal pain
Old blood with loose stool over night
No fevers
Objective Data
-
Labs:
Laboratory Results
05/25/25
06:29
WBC 7.1
Hgb 9.3 L
Hct 28.4 L
Plt Count 220
Sodium 139
Potassium 3.6
Chloride 107
Carbon Dioxide 26
BUN 4 L
Creatinine 0.6
Glucose 86
Calcium 8.5
Total Bilirubin 0.2
AST 15
ALT 10
Alkaline Phosphatase 71
Vital Signs:
Vital Signs
Temp Pulse Resp BP Pulse Ox
98.2 F 69 20 120/59 96
05/25/25 07:00 05/25/25 07:00 05/25/25 07:00 05/25/25 07:00 05/25/25 07:00
I&O
05/24/25 05/25/25 05/26/25
06:59 06:59 06:59
Intake Total 2420 / 2420 1310 / 1310
Output Total 850 / 850
Balance 1570 / 1570 1310 / 1310
--- NOTE | 2025-05-25 10:35 | CM ---
Reviewed the chart notes and spoke with the patient at the bedside. Per patient, possible discharge to home today. CM continues to be available to patient/family and is monitoring medical plan for needs at discharge.
Plan: Discharge to home when medically stable. No needs anticipated.
[2025-05-25] MEDS: ULTRAM 25 MG PO (14:52)
[2025-05-25 15:00] VITALS: BP 125/61
[2025-05-25] MEDS: CRESTOR 40 MG PO (17:07)
[2025-05-25] MEDS: ROCEPHIN 1000 MG IV (19:43)
[2025-05-25] MEDS: STERILE WATER FOR INJECTION 10 ML IV (19:44)
[2025-05-25] MEDS: PEPCID 40 MG PO (21:20)
[2025-05-25] MEDS: TYLENOL 650 MG PO (22:23)
[2025-05-25 23:27] VITALS: BP 110/71
[2025-05-26] MEDS: SYNTHROID 137 MCG PO (05:35)
[2025-05-26] MEDS: ADVAIR HFA 230/21 MCG INHALER 2 PUFF INH (07:27)
[2025-05-26] MEDS: ROCEPHIN 1000 MG IV (08:44)
[2025-05-26] MEDS: MAG-TAB SR 84 MG PO (08:44)
[2025-05-26] MEDS: PROTONIX 40 MG PO (08:44)
[2025-05-26] MEDS: PEPCID 20 MG PO (08:44)
[2025-05-26] MEDS: TAMBOCOR 100 MG PO (08:44)
[2025-05-26] MEDS: STERILE WATER FOR INJECTION 10 ML IV (08:45)
[2025-05-26 08:50] VITALS: BP 109/66
--- NOTE | 2025-05-26 12:32 | W.PN.HOSP.TC ---
Today's Communication/Plan
-
Discharge
Assessment / Plan
Assessment / Plan
Physical Exam
General: Well Developed, Well Nourished, No Apparent Distress, Conversant
HEENT: NormoCephalic, Moist mucous membranes, Atraumatic, Nose Appears Normal and Ears Appear Normal
Respiratory: Clear
GI: Soft, Non Distended, Normal Bowel Sounds, no tenderness.
Rectal: no bleeding .
Genito-urinary: no hematuria
Musculoskeletal: No Clubbing, No Cyanosis and No Edema
Neuro: Awake, Alert, AO x 3 and Nonfocal/grossly intact
Psych: Calm and Intact Judgment/Insight
A/P:
#Acute pancolitis
#history of gastric bypass
WBC is normal now.
No more fever
combination of leukocytosis, fever, colitis, seems c/w sepsis POA
No abd pain
s/p empiric Abx, finished course.
Negative Noro and C. difficile.
Seems related to possible ingestion of yogurt?
Negative stool culture.
Stopped Flagyl due to nausea.
Order blood culture 05/23 due to fever , no growth.
Patient did not want pain medicine as morphine. Tylenol was ordered. Tried low-dose tramadol
Appreciate GI help
# mild acute blood loss anemia due to colitis
Monitored HGB
BP stable
#acute kidney injury, normal kidney function
Hypovolemic shock/ septic shock , resolved
Resolved
#Elevated Lipase due to pancolitis
Lipase 358
- No evidence of acute pancreatitis
#hypercholesterolemia
- continue rosuvastatin
#essential hypertension
- Ok to resume HCTZ and lisinopril when able
#hypothyroidism
- continue levothyroxine
#obesity
s/p gastric bypass 2003
- Can resume metformin in setting of SLAVA
- held Ozempic as possible contributing factor , she was advised by GO to stop it.
- encourage balanced diet and exercise to promote weight loss
#anxiety
- continue PRN alprazolam
#chronic obstructive pulmonary disease
#asthma
No cough
No hypoxia
No wheezes on exam.
- continue Advair and Xopenex
#PSVT (paroxysmal supraventricular tachycardia)
- continue flecainide
#fibromyalgia
#lumbar radiculopathy
#cervical radiculopathy
#DDD (degenerative disc disease), lumbar
Code status: full code
Total discharge time spent to see the patient, examine the patient, review data and lab result, discuss discharge plan with patient, nursing staff around 65 minutes
Anticipated Discharge: Today
Subjective/Interval History
-
Date of Service: May 26, 2025
she feels much better
tolerating diet
no nausea, abdominal pain
no fevers
Objective Data
-
Vital Signs:
Vital Signs
Temp Pulse Resp BP Pulse Ox
98.2 F 73 16 109/66 97
05/26/25 08:50 05/26/25 08:50 05/26/25 08:50 05/26/25 08:50 05/26/25 09:02
I&O
05/25/25 05/26/25 05/27/25
06:59 06:59 06:59
Intake Total 1310 / 1310 980 / 980 100 / 100
Balance 1310 / 1310 980 / 980 100 / 100
--- NOTE | 2025-05-26 12:35 | W.DCSUMMARY ---
Discharge Summary
Discharge Data
Date of Admission: 05/22/25
Date of Discharge: 05/26/25
-
Pending Results: No
Hospital Course
55 years old female presented with abdominal pain and bloody diarrhea. She was found to have leukocytosis with fever. She met the criteria of sepsis. Scan of the abdomen and pelvis showed moderate acute infectious process colitis greatest in the
descending and sigmoid colon. She has history of recent start of Ozempic 2 weeks ago as well as metformin for hemoglobin A1c of 6. Patient was diagnosed with acute enteritis, probably foodborne. Patient reported that her symptoms started abruptly
after consuming yogurt. Patient was given empiric IV antibiotic and intravenous fluid. She subsequently started to improve. She did not have further fevers. Blood culture did not show any growth. Stool studies were negative. Patient was
followed by entertainment production professional. Diet was advanced slowly as she tolerated diet well. Patient was advised to avoid GLP-1/Ozempic. Gastroenterology doctor recommended outpatient upper and lower endoscopic evaluation. Patient remained
hemodynamically stable. She was discharged home in a stable condition.
Discharge Plan
-
Patient Disposition: Home (Routine Discharge)
Discharge Diagnosis/Procedures: Acute gastroenteritis
You were seen by GI, you had IVF and IV antibiotics. Blood culture is negative. Stool culture is negative.
Condition: Fair
Diet: As tolerated
Referrals:
Deejay Lopez MD [Family Provider, Family Practice] - in one to two weeks
Melanie Jacinto MD [Active, Gastroenterology]
Referral Note: 4-8 wks for ileus and GERD. will need OP EGD/colon
Prescriptions:
New
ondansetron HCl 4 mg tablet
4 mg PO BIDPRN PRN (Reason: nausea and vomiting) Qty: 10 0RF
Continued
furosemide [Lasix] 40 mg Tablet
40 mg PO DAILYPRN PRN (Reason: FLUID)
metformin 500 mg Tablet
500 mg PO DAILY
levothyroxine [Synthroid] 137 mcg Tablet
137 mcg PO DAILY
magnesium oxide 420 mg Tablet
420 mg PO DAILY
levalbuterol HCl 0.63 mg/3 mL Solution For Nebulization
0.63 mg INHALATION R Q6HPRN PRN (Reason: SOB)
lisinopril 20 mg Tablet
20 mg PO DAILY
famotidine [Pepcid] 40 mg Tablet
40 mg PO DAILY
therapeutic multivitamin Tablet
1 tab PO DAILY
valacyclovir [Valtrex] 500 mg Tablet
500 mg PO DAILY
omeprazole 40 mg Capsule,Delayed Release(Dr/Ec)
40 mg PO DAILY
alprazolam [Xanax] 0.25 mg Tablet
0.25 mg PO DAILYPRN PRN (Reason: ANXIETY)
ascorbic acid (vitamin C) [Vitamin C With Sofi Hips] 500 mg Tablet
500 mg PO DAILY
fluticasone propion-salmeterol [Advair Diskus] 500-50 mcg/dose Blister With Device
1 inh INHALATION R BID
flecainide 100 mg Tablet
100 mg PO Q12H
hydrochlorothiazide 25 mg Tablet
25 mg PO DAILY
metaxalone 800 mg Tablet
800 mg PO BIDPRN PRN (Reason: SPASMS)
rosuvastatin [Crestor] 40 mg Tablet
40 mg PO DAILY
levalbuterol tartrate [Xopenex HFA] 45 mcg/actuation Hfa Aerosol Inhaler
2 inh INHALATION R Q6HPRN PRN (Reason: sob)
calcium carbonate-vitamin D3 [Calcium 600 + D(3)] 600 mg-10 mcg (400 unit) Tablet
1 tab PO DAILY
Azo Urinary Health 500 mg-2,000 mg -15 mcg-2 mg Powder In Packet
1 ea PO DAILY
Medical Marijuana
1 applic topical DAILYPRN PRN (Reason: MOE FEET/LOWER BACK)
Discontinued
Ozempic 0.25 mg or 0.5 mg (2 mg/3 mL) pen injector
0.25 mg SC TH
Discharge Orders:
Discharge Patient (As Directed); Ordered 05/26/25
Ordered By: Boris Rolle
Discharge Date and Time
Discharge Date/Time: 05/26/25 10:11
Print Language: POLISH
== END 2025-05-26 10:11 | disposition home or self-care (01) | DRG 871 ==
LOC: 2 NORTH 21:57
PROVIDERS: Emergency Medicine; Nurse Practitioner Family; ADMITTING PHYSICIAN Internal Medicine; ATTENDING PHYSICIAN Internal Medicine; CONSULT PHYSICIAN Internal Medicine Gastroenterology; EMERGENCY PHYSICIAN Emergency Medicine; FAMILY PHYSICIAN Family Medicine
DX: A41.9 Sepsis, unspecified organism (principal); R65.21 Severe sepsis with septic shock; A04.9 Bacterial intestinal infection, unspecified; D62 Acute posthemorrhagic anemia; I47.19 Other supraventricular tachycardia; N17.9 Acute kidney failure, unspecified; Z68.41 Body mass index [BMI] 40.0-44.9, adult; K56.7 Ileus, unspecified; E86.0 Dehydration; I95.9 Hypotension, unspecified; I10 Essential (primary) hypertension; E66.9 Obesity, unspecified; E78.00 Pure hypercholesterolemia, unspecified; E03.9 Hypothyroidism, unspecified; F41.9 Anxiety disorder, unspecified; M79.7 Fibromyalgia; M51.16 Intervertebral disc disorders with radiculopathy, lumbar region; J44.89 Other specified chronic obstructive pulmonary disease; F17.200 Nicotine dependence, unspecified, uncomplicated
CPT/HCPCS: 74019; 74176; 80048; 80053; 82962; 83690; 85025; 85027; 87040; 87045; 87046; 87324; 87427; 87449; 87798; 93005; 94640; 96361; 96374; 96375; 96376; 99285

== ENCOUNTER → 2025-06-08 08:37 | Outpatient (REF) | payer OTHER, SELFPAY | LOC: HWWDC 08:37 | PROVIDERS: ATTENDING PHYSICIAN Obstetrics & Gynecology; FAMILY PHYSICIAN Family Medicine | DX: Z12.31 Encounter for screening mammogram for malignant neoplasm of breast (principal) | CPT/HCPCS: 77063; 77067 ==

== ENCOUNTER → 2025-06-09 12:30 | Outpatient (REF) | payer OTHER, SELFPAY | LOC: RCS 12:30 | PROVIDERS: ATTENDING PHYSICIAN Internal Medicine; FAMILY PHYSICIAN Family Medicine | DX: R01.1 Cardiac murmur, unspecified (principal) | CPT/HCPCS: 93306 ==

== ENCOUNTER 2025-07-15 06:18 | Day surgery (SDC) | payer OTHER, SELFPAY ==
[2025-07-15 10:12] LABS: Glucose - Point of Care 93 mg/dl (70-99)
== END 2025-07-15 13:57 | disposition home or self-care (01) ==
LOC: GI 06:18
PROVIDERS: ATTENDING PHYSICIAN Internal Medicine Gastroenterology; FAMILY PHYSICIAN Family Medicine
DX: R93.3 Abnormal findings on diagnostic imaging of other parts of digestive tract (principal); K64.8 Other hemorrhoids; K57.30 Diverticulosis of large intestine without perforation or abscess without bleeding; R12 Heartburn; R11.12 Projectile vomiting; K31.89 Other diseases of stomach and duodenum; D12.3 Benign neoplasm of transverse colon; K29.50 Unspecified chronic gastritis without bleeding; Z98.84 Bariatric surgery status
CPT/HCPCS: 45380; 43239; 82962; 88305; 88342

== ENCOUNTER 2025-08-06 10:34 | Emergency (ER) | payer OTHER, SELFPAY ==
[2025-08-06 10:36] VITALS: BP 135/71
--- NOTE | 2025-08-06 11:54 | ED.GENMED ---
History of Present Illness
General
Chief Complaint: Extremity Pain (non-traumatic)
Source: patient
Exam Limitations: none
Time Seen by Provider: 08/06/25 11:30
History of Present Illness
History of Present Illness:
55yoF with a history of hypertension, SVT, asthma, antiphospholipid antibody syndrome, hypothyroidism, and fibromyalgia presenting for multiple complaints. She is mainly here because she started to experience some pain in both of her calves
starting yesterday. She denies any trauma or inciting incident. She states the skin is very sensitive to touch and the pain feels like a burning sensation. She states her symptoms feel different from her fibromyalgia and peripheral neuropathy.
Patient believes her pain may be stemming from her back or her hip but she is not sure. She also had some chest heaviness last night before going to bed but this has resolved. Additionally, she reports intermittent bouts of head pressure that last
several minutes at a time which been ongoing for at least a few weeks to months. She called her PCP today regarding her symptoms and was sent to the ED for evaluation of a possible DVT. Of note, patient's broadcast designer has been adjusting her
medications and she was switched from diltiazem to nadolol and first dose was earlier today.
Past History
Past History
ED Past Medical History: Asthma, HTN, Hypercholesterolemia, Hypothyroidism and Other (Herniated disc Chronic Sinusitis, Ovarian cyst, Sigmoid colon colapse, fibromyalgia, anxiety)
ED Past Surgical History: Cholecystectomy, Orthopedic and Other (Fibromyalgia, peripheral neuropathy, gastric bypass)
Social History
Tobacco: Smoker (vaping)
Alcohol: None
Drug: None
Personal:
Living: with family
Family History
Family History: Other (n/c)
Phy Exam
General Physical Exam
General Presentation: well appearing and no apparent distress
General Skin: warm and dry
General Habitus: normal
General Mental: alert
ENT Exam
ENT Exam: normocephalic
Cardiovascular Exam
Cardiovascular Exam: no edema, normal peripheral pulses (2+ DP pulses bilaterally) and bradycardia
Pulmonary Exam
Pulmonary Exam: lungs clear, no respiratory distress, no rales, no crackles, no rhonchi and no wheezing
Neurological Exam
Neurological Exam: alert
Sanju Coma Scale
Eye Opening: Spontaneous
Verbal Response: Oriented
Motor Response: Obeys Commands
GCS Total Score: 15
Musculoskeletal Exam
Musculoskeletal Exam: other (No skin changes noted to lower extremities. No pitting edema. Feet are warm and well-perfused. DP pulses easily palpable bilaterally.)
Skin Exam
Skin Exam: normal color and warm/dry
Psychiatric Exam
Psychiatric Exam: normal mood/affect
Course
Orders/Labs/Results
Orders:
Orders
08/06/25 11:53
Electrocardiogram (*1) Urgent
Reason for Study: Chest Pain
EKG- Treatment ONCE
Venous Doppler Lwr Ext Bilat [US Perip Venous LOWER Ext Sridhar] Urgent
Comment:
Reason For Exam: bilateral calf pain
08/06/25 11:54
CT Head W/o Iv Contrast Urgent
Comment:
Reason For Exam: head pressure
CR Chest - 2 Views Urgent
Comment:
Reason For Exam: CP
08/06/25 12:32
Complete Blood Count/With Diff Urgent
Comprehensive Metabolic Panel Urgent
Troponin I Urgent
Abnormal Lab Results
08/06/25
12:32
WBC 4.4 L 10^3/uL
(4.8-10.8)
RBC 3.88 L 10^6/uL
(4.20-5.40)
Hgb 11.2 L g/dL
(12.0-16.0)
Hct 33.8 L %
(37.0-47.0)
Absolute Lymphs (auto) 1.1 L 10^3/uL
(1.2-3.4)
Monocytes % 13.4 H %
(1.7-9.3)
BUN 20 H mg/dl
(7-17)
Glucose 100 H mg/dl
(70-99)
08/06/25 12:32
08/06/25 12:32
Vital Signs
Initial and Last Documented VS:
Initial Vital Signs
Temp Pulse Resp BP Pulse Ox
98.8 F 57 18 135/71 97
08/06/25 10:36 08/06/25 10:36 08/06/25 10:36 08/06/25 10:36 08/06/25 10:36
Last Documented Vital Signs
Temp Pulse Resp BP Pulse Ox
98.8 F 52 16 136/78 99
08/06/25 10:36 08/06/25 14:47 08/06/25 14:47 08/06/25 14:00 08/06/25 14:00
MDM/Problems Addressed
Differential Diagnosis Includes:
55yoF here with bilateral calf pain x 1 day. Also c/o intermittent head pressure and had an episode of chest heaviness last night. Sent to ED by PCP for DVT evaluation. VSS. She is well-appearing in no acute distress. Lower extremities are normal
to inspection without pitting edema. Extremities well-perfused with 2+ DP pulses. Differential diagnosis includes but is not limited to: Muscular strain, lumbar radiculopathy, pain related to fibromyalgia, less likely DVT, no clinical evidence of
cellulitis
Initial ED plan: Check cardiac labs, EKG, bilateral venous duplex, chest x-ray, and CT head.
*Pulse Oximetry
SaO2: 97
Patient hypoxic: no (97%)
*EKG
Interpreted by ED Provider?: Yes
EKG Intrepretation Date: 08/06/25
Heart Rate: 50
Rate: bradycardiac
Rhythm: sinus
[place]: normal axis
Interval: normal interval
QRS Pattern: low voltage
*Critical Care Note
Total Time (30-74mins, 75-104mins- exclusive of procedures): Not Applicable
Update Note
Update Note:
Labs overall unremarkable. EKG shows sinus bradycardia without ischemic changes and troponin normal. Chest x-ray clear and CT head negative for acute findings. Bilateral venous duplex negative for DVT. Patient stable for discharge. She was
advised to follow-up with her PCP and roof painter. She was discharged in stable condition.
ED Attending Note
-
Portions of this chart may have been created with voice recognition software.� Occasional wrong word or��sound alike� substitutions may have occurred due to the inherent limitations of voice recognition software.
Discharge Plan
Departure
Patient Disposition: Home (Routine Discharge)
Date of Disposition: 08/06/25
Time of Disposition: 14:12
Patient with high blood pressure during this ER visit?: No
Discharge Problem:
Bilateral calf pain
Instructions: Muscle and Bone Pain (DC)
Prescriptions:
No Action
furosemide [Lasix] 40 mg Tablet
40 mg PO DAILYPRN PRN (Reason: FLUID)
metformin 500 mg Tablet
500 mg PO DAILY
levothyroxine [Synthroid] 137 mcg Tablet
137 mcg PO DAILY
magnesium oxide 420 mg Tablet
420 mg PO DAILY
levalbuterol HCl 0.63 mg/3 mL Solution For Nebulization
0.63 mg INHALATION R Q6HPRN PRN (Reason: SOB)
lisinopril 20 mg Tablet
20 mg PO DAILY
famotidine [Pepcid] 40 mg Tablet
40 mg PO DAILY
therapeutic multivitamin Tablet
1 tab PO DAILY
valacyclovir [Valtrex] 500 mg Tablet
500 mg PO DAILY
omeprazole 40 mg Capsule,Delayed Release(Dr/Ec)
40 mg PO DAILY
alprazolam [Xanax] 0.25 mg Tablet
0.25 mg PO DAILYPRN PRN (Reason: ANXIETY)
ascorbic acid (vitamin C) [Vitamin C With Sofi Hips] 500 mg Tablet
500 mg PO DAILY
fluticasone propion-salmeterol [Advair Diskus] 500-50 mcg/dose Blister With Device
1 inh INHALATION R BID
flecainide 100 mg Tablet
100 mg PO Q12H
hydrochlorothiazide 25 mg Tablet
25 mg PO DAILY
metaxalone 800 mg Tablet
800 mg PO BIDPRN PRN (Reason: SPASMS)
rosuvastatin [Crestor] 40 mg Tablet
40 mg PO DAILY
levalbuterol tartrate [Xopenex HFA] 45 mcg/actuation Hfa Aerosol Inhaler
2 inh INHALATION R Q6HPRN PRN (Reason: sob)
calcium carbonate-vitamin D3 [Calcium 600 + D(3)] 600 mg-10 mcg (400 unit) Tablet
1 tab PO DAILY
Azo Urinary Health 500 mg-2,000 mg -15 mcg-2 mg Powder In Packet
1 ea PO DAILY
Medical Marijuana
1 applic topical DAILYPRN PRN (Reason: MOE FEET/LOWER BACK)
ondansetron HCl 4 mg tablet
4 mg PO BIDPRN PRN (Reason: nausea and vomiting) Qty: 10 0RF
Referrals:
Deejay Lopez MD [Family Provider, Family Practice]
Activity Restrictions/Additional Instructions:
Please follow-up with your family doctor and roof painter. Return to the ER with any new or worsening symptoms.
Interventions
Interventions:
*Risk Screen - Suicide Last Done: 08/06/25 10:37
*General Assessment Last Done: 08/06/25 12:00
*Neglect/Abuse Screening Last Done: 08/06/25 12:00
*ED- Fall Risk Assessment Last Done: 08/06/25 12:00
*Nursing Disposition Last Done: 08/06/25 14:47
ED-Skin Assessment Last Done: 08/06/25 12:00
ED-Peripheral Vascular Assessment Last Done: 08/06/25 12:00
ED-Musculoskeletal Assessment Last Done: 08/06/25 12:00
Discharge Date and Time
Discharge Date/Time: 08/06/25 14:47
Print Language: PASHTO
[2025-08-06 12:52] LABS: Hematocrit 33.8 % (37.0-47.0); Hemoglobin 11.2 g/dL (12.0-16.0); Mean Corp Hgb Conc. 33.1 g/dL (33.0-37.0); Mean Corpuscular Volume 87.1 fL (81.0-99.0); Nucleated Red Blood Cells % 0 %; Platelet Count 292 10^3/uL (130-400); Red Cell Dist. Width 13.5 % (11.5-14.5)
[2025-08-06 13:16] LABS: ALT (SGPT) 20 U/L (0-35); AST (SGOT) 24 U/L (14-36); Albumin 4.2 g/dl (3.5-5.0); Alkaline Phosphatase 70 U/L (38-126); Blood Urea Nitrogen 20 mg/dl (7-17); Calcium 9.3 mg/dl (8.4-10.2); Carbon Dioxide 28 mmol/L (22-30); Chloride 105 mmol/L (98-107); Glucose 100 mg/dl (70-99); Potassium 4.3 mmol/L (3.5-5.1); Sodium 138 mmol/L (135-145); Total Protein 6.8 g/dl (6.3-8.2); eGFR > 60.00
[2025-08-06 13:27] LABS: Troponin I < 0.012 ng/ml
[2025-08-06 14:00] VITALS: BP 136/78
== END 2025-08-06 14:47 | disposition home or self-care (01) ==
LOC: EMR 10:34
PROVIDERS: Physician Assistant; EMERGENCY PHYSICIAN Emergency Medicine; FAMILY PHYSICIAN Family Medicine
DX: M79.662 Pain in left lower leg (principal); M79.661 Pain in right lower leg; I10 Essential (primary) hypertension; E78.00 Pure hypercholesterolemia, unspecified; J45.909 Unspecified asthma, uncomplicated; D68.61 Antiphospholipid syndrome; E03.9 Hypothyroidism, unspecified; F41.9 Anxiety disorder, unspecified; M79.7 Fibromyalgia; G62.9 Polyneuropathy, unspecified; F17.290 Nicotine dependence, other tobacco product, uncomplicated; Z98.84 Bariatric surgery status
CPT/HCPCS: 99284; 70450; 71046; 80053; 84484; 85025; 93005; 93970

== ENCOUNTER → 2025-08-08 17:34 | Outpatient (REF) | payer OTHER, SELFPAY | LOC: MRI 17:34 | PROVIDERS: ATTENDING PHYSICIAN Neurological Surgery; FAMILY PHYSICIAN Family Medicine | DX: M47.816 Spondylosis without myelopathy or radiculopathy, lumbar region (principal); M43.16 Spondylolisthesis, lumbar region; Z98.1 Arthrodesis status | CPT/HCPCS: 72158; A9575 ==

== ENCOUNTER → 2025-08-16 09:34 | Outpatient (REF) | payer OTHER, SELFPAY | LOC: RAD 09:34 | PROVIDERS: ATTENDING PHYSICIAN Internal Medicine; FAMILY PHYSICIAN Family Medicine | DX: R07.9 Chest pain, unspecified (principal) | CPT/HCPCS: 75574; Q9967 ==

== ENCOUNTER → 2025-08-31 07:50 | Outpatient (REF) | payer OTHER, SELFPAY | LOC: HWRAD 07:50 | PROVIDERS: ATTENDING PHYSICIAN Internal Medicine Critical Care Medicine; FAMILY PHYSICIAN Family Medicine | DX: R91.1 Solitary pulmonary nodule (principal); R93.89 Abnormal findings on diagnostic imaging of other specified body structures | CPT/HCPCS: 71250 ==

== ENCOUNTER → 2025-09-05 08:39 | Outpatient (REF) | payer OTHER, SELFPAY | LOC: DHVS 08:39 | PROVIDERS: ATTENDING PHYSICIAN Surgery Vascular Surgery; FAMILY PHYSICIAN Family Medicine | DX: I70.0 Atherosclerosis of aorta (principal) | CPT/HCPCS: 93922 ==

== ENCOUNTER → 2025-09-07 07:51 | Outpatient (REF) | payer OTHER, SELFPAY ==
[2025-09-07 08:11] LABS: Glucose 96 mg/dl (70-99)
== END ==
LOC: PET 07:51
PROVIDERS: ATTENDING PHYSICIAN Nurse Practitioner Adult Health
DX: R91.1 Solitary pulmonary nodule (principal); Z01.818 Encounter for other preprocedural examination
CPT/HCPCS: 36415; 78815; 82947; A9552

== ENCOUNTER → 2025-10-19 19:30 | Outpatient (REF) | payer OTHER, SELFPAY | LOC: MRI 19:30 | PROVIDERS: ATTENDING PHYSICIAN Neurological Surgery; FAMILY PHYSICIAN Family Medicine | DX: R26.2 Difficulty in walking, not elsewhere classified (principal); M47.812 Spondylosis without myelopathy or radiculopathy, cervical region; M48.02 Spinal stenosis, cervical region; M54.2 Cervicalgia; M47.816 Spondylosis without myelopathy or radiculopathy, lumbar region; M43.16 Spondylolisthesis, lumbar region; Z98.1 Arthrodesis status; G89.29 Other chronic pain; M54.41 Lumbago with sciatica, right side; G89.4 Chronic pain syndrome; M54.16 Radiculopathy, lumbar region; M53.3 Sacrococcygeal disorders, not elsewhere classified; M25.562 Pain in left knee; M25.552 Pain in left hip; M79.7 Fibromyalgia; D68.61 Antiphospholipid syndrome; R76.0 Raised antibody titer; E66.1 Drug-induced obesity; A69.23 Arthritis due to Lyme disease; R29.2 Abnormal reflex | CPT/HCPCS: 72157; A9575 ==

== ENCOUNTER → 2025-10-31 13:47 | Outpatient (REF) | payer OTHER, SELFPAY | LOC: RAD 13:47 | PROVIDERS: ATTENDING PHYSICIAN Neurological Surgery; FAMILY PHYSICIAN Family Medicine | DX: R26.2 Difficulty in walking, not elsewhere classified (principal); M47.816 Spondylosis without myelopathy or radiculopathy, lumbar region; M43.16 Spondylolisthesis, lumbar region; Z98.1 Arthrodesis status; G89.4 Chronic pain syndrome; M54.16 Radiculopathy, lumbar region; M53.3 Sacrococcygeal disorders, not elsewhere classified | CPT/HCPCS: 72110; 72202; 73502 ==

== ENCOUNTER → 2025-11-15 13:24 | Outpatient (REF) | payer OTHER, SELFPAY | LOC: RAD 13:24 | PROVIDERS: ATTENDING PHYSICIAN Physician Assistant | DX: R10.A1 Flank pain, right side (principal); R31.9 Hematuria, unspecified | CPT/HCPCS: 76770 ==

== ENCOUNTER 2025-11-30 06:30 | Outpatient (RCR) | payer OTHER, SELFPAY | END 2025-11-30 23:59 | disposition home or self-care (01) | LOC: RST 06:30 | PROVIDERS: ATTENDING PHYSICIAN Student in an Organized Health Care Education/Training Program | DX: G70.00 Myasthenia gravis without (acute) exacerbation (principal); R49.0 Dysphonia; R13.13 Dysphagia, pharyngeal phase; Z98.890 Other specified postprocedural states | CPT/HCPCS: 92507; 92524 ==